=== PATIENT | female | born 1940 | race Caucasian/White ===

== ENCOUNTER 2016-11-02 16:17 | Inpatient (IN) | payer MEDICARE ==
[~2016-11-02] VITALS: Ht 165.1 cm; Wt 90.5 kg
[2016-11-02] MEDS ORDERED: HYDR12.55 PO (16:43)
[2016-11-02] MEDS ORDERED: METO12TA PO (16:43)
[2016-11-02] MEDS ORDERED: EQ O20TA4 (16:43)
[2016-11-02] MEDS ORDERED: ESCI20TA (16:43)
[2016-11-02] MEDS ORDERED: AMOX875T2 PO (16:43)
[2016-11-02] MEDS ORDERED: NS 500 ML IV ONE (18:45)
[2016-11-02] MEDS ORDERED: TRIMETHOBENZAMIDE HCL INJ 200 MG/2 ML VIAL (J3250) IM ONE (18:45)
[2016-11-02 19:17] LABS: BASO % 0.3 % (0.0-1.0); EOS # 0.1 K/mm3 (0.0-0.50); EOS % 0.9 % (0.0-3.0); LARGE UNSTAINED CELL # 0.1 K/mm3 (0.0-0.4); LARGE UNSTAINED CELL % 0.6 % (0.0-4.0); LYMPH # 1.1 K/mm3 (1.5-4.5); LYMPH % 7.8 % (24.0-44.0); MEAN CORPUSCULAR HEMOGLOBIN 27.8 pg (27.0-33.0); MEAN CORPUSCULAR HGB CONC 32.3 g/dl (32.0-36.5); MEAN CORPUSCULAR VOLUME 86.1 fl (80.0-96.0); MONO # 0.5 K/mm3 (0.0-0.8); MONO % 3.5 % (0.0-5.0); NEUTROPHILS # 11.2 K/mm3 (1.8-7.7); NEUTROPHILS % 86.9 % (36.0-66.0); PLATELET COUNT, AUTOMATED 396 k/mm3 (150-450); WHITE BLOOD COUNT 12.9 K/mm3 (4.0-10.0)
[2016-11-02 19:43] LABS: ALBUMIN 4.4 GM/DL (3.2-5.2); ALBUMIN/GLOBULIN RATIO 1.19 (1.00-1.93); BILIRUBIN,DIRECT 0.2 MG/DL (0.0-0.2); BILIRUBIN,TOTAL 0.9 MG/DL (0.2-1.0); CALCIUM LEVEL 9.2 MG/DL (8.8-10.2); CREATININE FOR GFR 1.34 MG/DL (0.55-1.02); TOTAL PROTEIN 8.1 GM/DL (6.4-8.2)
--- NOTE | 2016-11-02 20:20 | REPUSA ---
Clinical history: Right upper quadrant pain. Findings: The pancreas is limited in visualization secondary to overlying bowel gas, but appears meghan sly unremarkable. The liver demonstrates increased echotexture and echogenicity, with no mass lesion s. The gallbladder is unremarkable. The common bile duct measures 4 mm and is within normal limits. T he right kidney measures 9.2 x 4.7 x 4.3 cm. A simple cyst in the upper right kidney measures 2.3 x 1 .8 x 1.5 cm. There is no ascites. Impression: 1. Fatty infiltration of the liver. 2. Simple right renal cyst.
[2016-11-02] MEDS ORDERED: ISOVUE-370 76% 100ML VIAL (Q9967) As Ordered ONE (21:10)
[2016-11-02] MEDS: ONDANSETRON 4MG/2ML VIAL (J2405) IV PRN (21:24)
[2016-11-02] MEDS ORDERED: NS 1,000 ML IV SCH (21:45)
--- NOTE | 2016-11-02 22:00 | REPUSA ---
CT of the abdomen and pelvis with contrast Clinical statement: Pain. Possible pancreatitis. Technique: Multiple axial CT images were obtained from the base of the lungs through the floor of the pelvis utilizing 5 mm axial slices after administration of nonionic intravenous contrast. Coronal an d sagittal reconstructions were also obtained. No comparison is available. Correlation is made with ultrasound of 11/02/2016. Findings: Chest: The visualized lung bases are clear. Abdomen: The liver, spleen, pancreas, kidneys, gallbladder, and adrenal glands are unremarkable. Bila teral simple renal cysts are appreciated. The aorta is within normal limits. There is no evidence of abdominal lymphadenopathy or ascites. Pelvis: The bowel is unremarkable, with no obstructive or inflammatory changes. The appendix is bette l. The urinary bladder is within normal limits. The other pelvic structures appear grossly intact. Th ere is no evidence of pelvic lymphadenopathy or ascites. Bones: There are no suspicious osseous abnormalities seen. Moderate degenerative disc disease is note d at L2/L3 and L3/L4. There is a lumbarization of the S1 vertebral body. Impression: 1. No acute findings to explain the patient's pain. 2. No evidence of pancreatitis. 3. Bilateral simple renal cysts. 4. No obstructive or inflammatory bowel changes. 5. Mild spondylosis of the lumbar spine.
[2016-11-02] MEDS ORDERED: PANTOPRAZOLE 40MG INJ (PROTONIX) (C9113) IV ONE (22:45)
[2016-11-02] MEDS ORDERED: GI COCKTAIL 50ML BTL(HYOSCYAMINE/MAALOX/LIDOCAINE VISCOUS)(1:3:1) PO ONE (22:45)
[2016-11-03] MEDS ORDERED: NS 1,000 ML IV SCH (01:30)
[2016-11-03] MEDS ORDERED: OMEP20CA3 PO (02:31)
[2016-11-03] MEDS ORDERED: ESCI20TA PO (02:31)
[2016-11-03 03:00] VITALS: BP 152/80
[2016-11-03] MEDS ORDERED: METAL LOCK LOOP XX ONE (03:16)
[2016-11-03] MEDS: METOCLOPRAMIDE INJ 10MG/2ML VIAL (J2765) IV SCH ×2 (03:25→12:47)
[2016-11-03 06:00] VITALS: BP 185/90
--- NOTE | 2016-11-03 07:06 | HPE ---
DATE OF ADMISSION: 11/03/2016 PRIMARY CARE PROVIDER: Dr. Martinez CHIEF COMPLAINT: Severe nausea and vomiting, intractable for one day. PAST MEDICAL HISTORY: 1. Hyperlipidemia. 2. Anxiety. 3. Depression. 4. Gastroesophageal reflux disease. 5. Osteoporosis. 6. Coronary artery disease with history of myocardial infarction in 2010. 7. Vitamin D deficiency. 8. History of alcohol abuse. 9. Obesity. 10. Hypertension. 11. Obstructive sleep apnea, on CPAP. 12. Chronic kidney disease Stage III. HISTORY OF PRESENT ILLNESS: This is a 76-year-old female who has been battling a cough, cold and upper respiratory symptoms for about two weeks. She was getting better and seemed to be feeling more herself; however, last night she had several diarrheal episodes which she says is not uncommon so she did not give importance to it. This morning she woke up with severe nausea and had threw up twice at home. She tried to take some liquids, but everything is coming up. Then she would also have bouts of coughing associated with vomiting. She continued to feel very sick, persistently nauseous and feeling lightheaded, so came to the emergency room. In the emergency department (ED), she continued to feel nauseous and complaining of some abdominal pain. She had a CT of abdomen and pelvis done and an ultrasound of the abdomen done. Ultrasound of the abdomen was negative for any gallbladder issues. It did show some fatty infiltration of the liver and a renal cyst on the right. Abdominal and pelvis CT was then done which did not show any pancreatitis. There were bilateral simple renal cysts. There was no obstructive or inflammatory bowel changes. There was mild spondylosis of the lumbar spine. Appendix was normal. The patient's lab work was significant for a WBC of 12.9 and a lipase of 462. The patient was given antiemetic, proton pump inhibitor (PPI), IV fluids, gastrointestinal (GI) cocktail in the ED, however, continued to have persistent symptoms, so the hospitalist service was consulted for admission for intractable nausea and vomiting, most probably related to gastritis, duodenitis or acute stomach viral episode. PAST SURGICAL HISTORY: Hysterectomy in 1999. ALLERGIES: No known allergies. FAMILY HISTORY: Nothing significant. HOME MEDICATIONS: - citalopram 20 mg daily - hydrochlorothiazide 12.5 mg daily - metoprolol 25 mg daily - omeprazole 20 mg daily - nitroglycerin 0.4 mg sublingual as needed - Claritin 10 mg one tablet once a day as needed - naproxen 500 mg one tablet as needed as needed REVIEW OF SYSTEMS: All ten point review of systems are negative except those mentioned in history of present illness. PHYSICAL EXAMINATION: VITAL SIGNS: Temperature 98.5, pulse 86, respiratory rate 18, blood pressure 162/89 and pulse oximetry 95% in room air. GENERAL: Patient awake, alert and oriented times three, laying in bed in no acute distress. HEENT: Normocephalic, atraumatic. Moist mucous membranes. Anicteric eyes. CHEST: Clear to auscultation. CARDIOVASCULAR: S1, S2, regular. ABDOMEN: Obese. Soft. Mildly tender in the epigastrium and the right upper quadrant and right iliac fossa region. Bowel sounds are normal. EXTREMITIES: No edema. LABORATORY DATA: WBC 12.9, hemoglobin 13.5, and platelets 396. Sodium 137, potassium 4, chloride 102, bicarbonate 25, BUN 18, creatinine 1.34, glucose 116. Liver function tests are normal. C-reactive protein 2.14. Lipase 462. Amylase 81. ASSESSMENT AND PLAN: This is a 76-year-old female admitted for intractable nausea and vomiting. 1. Nausea and vomiting. Most probably due to either acute gastritis, duodenitis or stomach viral infection. Will keep the patient on clear liquids as tolerated and advance diet as tolerated. IV fluids. Will continue with Reglan and pantoprazole. 2. Hypertension. Will continue with metoprolol; however, will hold hydrochlorothiazide at present. 3. Anxiety and depression. Will hold Lexapro. 4. Gastroesophageal reflux disease. Will continue with pantoprazole. 5. Deep vein thrombosis (DVT) prophylaxis has been ordered. 6. Gastrointestinal (GI) prophylaxis has been ordered. 7. Obstructive sleep apnea and obesity. Will continue with CPAP.
[2016-11-03 07:07] LABS: BASO % 0.5 % (0.0-1.0); EOS % 0.4 % (0.0-3.0); LARGE UNSTAINED CELL # 0.2 K/mm3 (0.0-0.4); LARGE UNSTAINED CELL % 1.5 % (0.0-4.0); LYMPH # 1.2 K/mm3 (1.5-4.5); LYMPH % 10.1 % (24.0-44.0); MEAN CORPUSCULAR HEMOGLOBIN 27.8 pg (27.0-33.0); MEAN CORPUSCULAR HGB CONC 32.7 g/dl (32.0-36.5); MONO # 0.6 K/mm3 (0.0-0.8); NEUTROPHILS # 8.4 K/mm3 (1.8-7.7); NEUTROPHILS % 81.6 % (36.0-66.0); PLATELET COUNT, AUTOMATED 330 k/mm3 (150-450); RED CELL DISTRIBUTION WIDTH 12.9 % (11.5-14.5); WHITE BLOOD COUNT 10.3 K/mm3 (4.0-10.0)
[2016-11-03 07:24] LABS: CALCIUM LEVEL 8.8 MG/DL (8.8-10.2); CREATININE FOR GFR 1.27 MG/DL (0.55-1.02); GLOMERULAR FILTRATION RATE 43.7 (>39); POTASSIUM SERUM 3.6 MEQ/L (3.5-5.1)
[2016-11-03] MEDS ORDERED: amLODIPine 5 MG TAB PO ONE (08:00)
[2016-11-03] MEDS: ENOXAPARIN 40 MG/0.4 ML SYRINGE (J1650) SC SCH (08:14)
[2016-11-03] MEDS: METOPROLOL TART 12.5 MG PER 1/2 TAB PO SCH ×2 (08:14→20:09)
[2016-11-03] MEDS: ONDANSETRON 4MG/2ML VIAL (J2405) IV PRN ×2 (08:15→18:24)
[2016-11-03] MEDS: PANTOPRAZOLE 40MG INJ (PROTONIX) (C9113) IV SCH ×2 (08:15→20:07)
[2016-11-03] MEDS: MORPHINE 2 MG/ML 1ML SYRINGE IV PRN ×4 (09:19→22:05)
--- NOTE | 2016-11-03 09:36 | REP ---
CHEST PA AND LATERAL: 11/02/2016 CLINICAL HISTORY: Abdominal pain. COMPARISON: Portable chest 01/31/2011. FINDINGS: Lungs are adequately inflated. There is minor basilar fibrotic change without pleural effusion, lateral pleural thickening apical scar or pneumothorax. There is no parenchymal lung mass or nodule. The heart, mediastinal and hilar contours are normal. Airway is intact. The aorta is minimally tortuous but without aneurysm. There is no mediastinal or hilar mass. Bony thorax shows no focal lesion or compression deformity with marginal osteophytes at multiple levels. The bones are demineralized. No free air. IMPRESSION: 1. Some minor basilar fibrotic change without cardiomegaly, edema, effusion, atelectasis or mass. No free air under the diaphragm. Signed by Gabo Macdonald MD 11/03/2016 05:09 P
[2016-11-03] MEDS: NS 1,000 ML IV SCH ×3 (13:20→21:45)
[2016-11-03 14:00] VITALS: BP 152/88
--- NOTE | 2016-11-03 17:52 | ECGEPIP ---
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
[2016-11-03 22:00] VITALS: BP 138/76
[2016-11-04] MEDS: MORPHINE 2 MG/ML 1ML SYRINGE IV PRN ×4 (02:22→20:48)
[2016-11-04] MEDS: ONDANSETRON 4MG/2ML VIAL (J2405) IV PRN ×4 (02:22→17:33)
[2016-11-04] MEDS: NS 1,000 ML IV SCH ×5 (02:45→22:45)
[2016-11-04 06:00] VITALS: BP 130/82
[2016-11-04 07:01] LABS: BASO % 0.7 % (0.0-1.0); EOS # 0.1 K/mm3 (0.0-0.50); EOS % 1.7 % (0.0-3.0); LARGE UNSTAINED CELL # 0.1 K/mm3 (0.0-0.4); LARGE UNSTAINED CELL % 1.7 % (0.0-4.0); LYMPH # 1.2 K/mm3 (1.5-4.5); LYMPH % 16.8 % (24.0-44.0); MEAN CORPUSCULAR HEMOGLOBIN 27.8 pg (27.0-33.0); MEAN CORPUSCULAR HGB CONC 32.2 g/dl (32.0-36.5); MEAN CORPUSCULAR VOLUME 86.2 fl (80.0-96.0); MONO # 0.4 K/mm3 (0.0-0.8); NEUTROPHILS # 4.5 K/mm3 (1.8-7.7); PLATELET COUNT, AUTOMATED 288 k/mm3 (150-450); RED CELL DISTRIBUTION WIDTH 12.8 % (11.5-14.5); WHITE BLOOD COUNT 6.3 K/mm3 (4.0-10.0)
[2016-11-04 07:19] LABS: CREATININE FOR GFR 1.01 MG/DL (0.55-1.02); GLOMERULAR FILTRATION RATE 56.9 (>39); POTASSIUM SERUM 3.6 MEQ/L (3.5-5.1)
[2016-11-04] MEDS: METOPROLOL TART 12.5 MG PER 1/2 TAB PO SCH ×2 (08:23→20:47)
[2016-11-04] MEDS: amLODIPine 5 MG TAB PO SCH (08:23)
[2016-11-04] MEDS: ENOXAPARIN 40 MG/0.4 ML SYRINGE (J1650) SC SCH (08:24)
[2016-11-04] MEDS: PANTOPRAZOLE 40MG INJ (PROTONIX) (C9113) IV SCH ×2 (08:24→20:47)
[2016-11-04 14:00] VITALS: BP 154/72
[2016-11-04] MEDS: ESCITALOPRAM OXALATE 10 MG TAB (LEXAPRO) PO SCH (17:34)
--- NOTE | 2016-11-04 17:57 | IPN ---
DATE: 11/04/2016 SUBJECTIVE: Patient is seen and examined in the room today. Patient stated her right upper quadrant abdominal pain is improving with current pain medication and supportive care. Now she has fear of oral intake, she is afraid to try any oral intake at this moment. Otherwise, no overnight events reported. OBJECTIVE: VITAL SIGNS: Temperature 98.7, pulse 75, respiration rate 13, blood pressure 130/82, pulse oximetry (cut off). GENERAL: No sign of acute distress. Alert and oriented times three. HEENT: Normocephalic, atraumatic. Extraocular motors grossly intact. CARDIOVASCULAR: Positive S1, S2, regular rate. LUNGS: Clear to auscultation bilaterally. ABDOMEN: Still tenderness to palpation at the right upper quadrant. Otherwise, bowel sounds are present. Abdomen is soft. EXTREMITIES: No edema. No sign of cyanosis. LABORATORY DATA: WBC 6.3, hemoglobin 10.3, hematocrit 31.8, platelet count 288. Sodium 143, potassium 3.6, chloride 111, carbon dioxide 22, BUN 13, creatinine 1.01, GFR 56.9, calcium 7, magnesium 2, lipase 497. ASSESSMENT AND PLAN: 1. Pancreatitis. Patient was on pain medication and nothing by mouth on IV fluid since admission. Abdominal pain is improving. Patient's lipase decreased from 600 to 497. After discussion with patient, patient will start trial of full liquid diet during lunchtime and will advance as tolerated. If patient still has recurrence of the abdominal pain will resume nothing by mouth. Patient denies any recent medication changes. Patient does not have elevated triglycerides. 2. Hypertension. Continue metoprolol. Hydrochlorothiazide is on hold due to suspicion hydrochlorothiazide caused adverse effect causing patient's current signs and symptoms. Currently patient is on Norvasc 5 mg by mouth daily and metoprolol tartrate 12.5 mg by mouth twice a day. 3. Anxiety/depression. Patient is on escitalopram at home. Currently is on hold due to trying to minimize oral intake. Will resume her medication today. 4. Gastroesophageal reflux disease. Patient is on IV Protonix. 5. History of alcohol abuse. 6. Vitamin D deficiency. 7. Coronary artery disease. 8. Obesity. 9. Obstructive sleep apnea (JEFF). On continuous positive airway pressure (CPAP). 10. Acute on chronic kidney injury secondary to poor oral intake. With IV support, patient's creatinine improved from 1.34 to 1.01. Continue to monitor. 11. Deep venous thrombosis (DVT) prophylaxis. Patient is on Lovenox.
[2016-11-04 22:00] VITALS: BP 160/55
[2016-11-05] MEDS: NS 1,000 ML IV SCH ×3 (03:45→15:40)
[2016-11-05 06:00] VITALS: BP 155/80
[2016-11-05] MEDS: ONDANSETRON 4MG/2ML VIAL (J2405) IV PRN ×4 (06:09→22:48)
[2016-11-05 07:20] LABS: BASO % 0.4 % (0.0-1.0); EOS # 0.1 K/mm3 (0.0-0.50); EOS % 1.8 % (0.0-3.0); LARGE UNSTAINED CELL # 0.1 K/mm3 (0.0-0.4); LARGE UNSTAINED CELL % 1.4 % (0.0-4.0); LYMPH % 14.5 % (24.0-44.0); MEAN CORPUSCULAR HEMOGLOBIN 27.6 pg (27.0-33.0); MEAN CORPUSCULAR HGB CONC 32.2 g/dl (32.0-36.5); MEAN CORPUSCULAR VOLUME 85.8 fl (80.0-96.0); MONO # 0.4 K/mm3 (0.0-0.8); MONO % 5.9 % (0.0-5.0); NEUTROPHILS # 4.7 K/mm3 (1.8-7.7); PLATELET COUNT, AUTOMATED 320 k/mm3 (150-450); WHITE BLOOD COUNT 6.2 K/mm3 (4.0-10.0)
[2016-11-05 07:55] LABS: CALCIUM LEVEL 7.2 MG/DL (8.8-10.2); CREATININE FOR GFR 0.97 MG/DL (0.55-1.02); GLOMERULAR FILTRATION RATE 59.6 (>39); MAGNESIUM LEVEL 1.9 MG/DL (1.8-2.4); POTASSIUM SERUM 3.6 MEQ/L (3.5-5.1)
[2016-11-05] MEDS: PANTOPRAZOLE 40MG INJ (PROTONIX) (C9113) IV SCH ×2 (10:08→21:04)
[2016-11-05] MEDS: PREVNAR 13 VACCINE SYRINGE (CPT CODE:90670) IM ONE ×2 (10:09→14:18)
[2016-11-05] MEDS: amLODIPine 5 MG TAB PO SCH (10:10)
[2016-11-05] MEDS: METOPROLOL TART 12.5 MG PER 1/2 TAB PO SCH ×2 (10:10→21:08)
[2016-11-05] MEDS: ESCITALOPRAM OXALATE 10 MG TAB (LEXAPRO) PO SCH (10:10)
[2016-11-05] MEDS: ENOXAPARIN 40 MG/0.4 ML SYRINGE (J1650) SC SCH (10:11)
[2016-11-05 14:00] VITALS: BP 158/80
--- NOTE | 2016-11-05 18:16 | IPN ---
DATE: 11/05/2016 SUBJECTIVE: Patient is seen and examined in the room today. Patient stated she has been on the liquid diet, however this morning after breakfast she started having recurrence of nausea and vomiting and patient started to have worsening fear of food, but nausea and vomiting is gradually controlled with Zofran. Patient is not sure if she can advance the diet due to fear. OBJECTIVE: VITAL SIGNS: Temperature 97.9, pulse 73, respirations 18, blood pressure 155/80, pulse oximetry 93% in room air. GENERAL: No sign of acute distress, alert and oriented times three. HEENT: Normocephalic, atraumatic. Extraocular motors grossly intact. CARDIOVASCULAR: Positive S1, S2, regular rate. LUNGS: Clear to auscultation bilaterally. ABDOMEN: Soft, nontender, nondistended. Bowel sounds present. No rebound. No guarding. EXTREMITIES: No edema. No sign of cyanosis. LABORATORY DATA: WBC 6.2, hemoglobin 10.8, hematocrit 33.6, platelet count 320. Sodium 141, potassium 3.6, chloride 110, carbon dioxide 21, BUN 9, creatinine 0.97, GFR is 59.6, fasting glucose 101, calcium 7.2, magnesium 1.9, C-reactive protein 1.27. ASSESSMENT AND PLAN: 1. Pancreatitis. Patient is on aggressive IV fluids since admission and patient also has as needed pain medication. Patient was started on clear liquid diet, however this morning patient started to have recurrence of nausea and vomiting and patient started to have fear about advancing oral intake. I discussed with the patient, patient should advance the diet as tolerated. If patient should have nausea and vomiting, symptoms can be controlled. Right now, after a long discussion, patient agreed to advance to soft diet for lunch time and possibly will advance to solid for dinner if tolerated. I will also start to decrease IV fluids. Will follow with repeat lipase level. Will anticipate patient may be discharged tomorrow. 2. Hypertension. Continue metoprolol. Hydrochlorothiazide is on hold due to possible cause for patient's current signs and symptoms. Patient is also on Norvasc by mouth daily. Metoprolol is 12.5 mg by mouth twice a day. 3. Anxiety/depression. Patient is on escitalopram. 4. Gastroesophageal reflux disease. On Protonix. 5. History of alcohol abuse. Patient has a significant alcohol history in the past and patient has attended Alcoholics Anonymous (AA) meetings, but patient stopped drinking many years ago. 6. History of vitamin D deficiency. 7. History of coronary artery disease. 8. Obesity. 9. Obstructive sleep apnea (JEFF) on continuous positive airway pressure (CPAP). 10. Acute on chronic kidney injury secondary to poor oral intake. Patient is on aggressive IV fluids since admission. Patient's renal function has been improving. On the day of admission patient had a GFR of 41, current GFR is approximately 60. Will slow down the IV fluids. 11. Deep venous thrombosis (DVT) prophylaxis on Lovenox. DISPOSITION: Currently patient is in the process of advancing oral intake. We anticipate that patient may be discharged tomorrow.
[2016-11-05 22:00] VITALS: BP 152/80
[2016-11-06] MEDS: ONDANSETRON 4MG/2ML VIAL (J2405) IV PRN ×2 (03:08→08:24)
[2016-11-06 06:00] VITALS: BP 165/85
[2016-11-06 07:18] LABS: BASO % 0.4 % (0.0-1.0); EOS # 0.1 K/mm3 (0.0-0.50); EOS % 1.5 % (0.0-3.0); LARGE UNSTAINED CELL # 0.1 K/mm3 (0.0-0.4); LARGE UNSTAINED CELL % 1.3 % (0.0-4.0); LYMPH # 1.1 K/mm3 (1.5-4.5); LYMPH % 13.6 % (24.0-44.0); MEAN CORPUSCULAR HEMOGLOBIN 27.9 pg (27.0-33.0); MEAN CORPUSCULAR HGB CONC 33.4 g/dl (32.0-36.5); MEAN CORPUSCULAR VOLUME 83.7 fl (80.0-96.0); MONO # 0.4 K/mm3 (0.0-0.8); MONO % 4.9 % (0.0-5.0); NEUTROPHILS % 78.3 % (36.0-66.0); PLATELET COUNT, AUTOMATED 348 k/mm3 (150-450); RED CELL DISTRIBUTION WIDTH 12.9 % (11.5-14.5); WHITE BLOOD COUNT 7.6 K/mm3 (4.0-10.0)
[2016-11-06 07:30] LABS: CALCIUM LEVEL 7.9 MG/DL (8.8-10.2); GLOMERULAR FILTRATION RATE 57.5 (>39); MAGNESIUM LEVEL 1.9 MG/DL (1.8-2.4); POTASSIUM SERUM 3.6 MEQ/L (3.5-5.1)
[2016-11-06] MEDS: PANTOPRAZOLE 40MG INJ (PROTONIX) (C9113) IV SCH (08:05)
[2016-11-06] MEDS: ENOXAPARIN 40 MG/0.4 ML SYRINGE (J1650) SC SCH (08:09)
[2016-11-06 08:10] VITALS: BP 165/85
[2016-11-06] MEDS: METOPROLOL TART 12.5 MG PER 1/2 TAB PO SCH (08:10)
[2016-11-06] MEDS: amLODIPine 5 MG TAB PO SCH (08:10)
[2016-11-06] MEDS: ESCITALOPRAM OXALATE 10 MG TAB (LEXAPRO) PO SCH (08:11)
[2016-11-06 08:30] VITALS: BP 165/70
[2016-11-06] MEDS ORDERED: ZOFR20TA PO (12:37)
[2016-11-06] MEDS ORDERED: METO25TAB PO (12:37)
[2016-11-06] MEDS ORDERED: AMLO5TAB2 PO (12:37)
--- NOTE | 2016-11-06 18:18 | DSES ---
DATE OF ADMISSION: 11/03/2016 DATE OF DISCHARGE: 11/06/2016 PRIMARY CARE PROVIDER: Dr. Martinez CONSULTANTS: None. PROCEDURES: None. COMPLICATIONS: None. ADMISSION/DISCHARGE DIAGNOSES: 1. Acute pancreatitis. 2. Hypertension. 3. Anxiety/depression. 4. Gastroesophageal reflux disease. 5. History of alcohol abuse. 6. History of vitamin D deficiency. 7. History of coronary artery disease. 8. Obesity. 9. Obstructive sleep apnea (JEFF), on continuous positive airway pressure (CPAP). 10. Acute on chronic kidney injury secondary to poor oral intake. HOSPITAL COURSE: The patient is a 76-year-old male, presented to [facility] on 11/03/2016 for severe nausea, vomiting and abdominal discomfort. During the admission process, the patient was found to have an elevated lipase. A gastrointestinal (GI) panel was obtained and it was negative, and the patient was started on a course of intravenous (IV) fluids and the patient placed on nothing by mouth and pain control. The patient's nausea and vomiting continued to improve with medical management. The patient is still using Zofran intermittently to control the symptoms. When the patient's GI symptoms continued gradually to resolve, the patient was started on a clear liquid diet. However, due to the and there was recurrence of the abdominal pain, the patient's oral intake progression has been relatively slow and the patient stayed on a clear liquid diet for at least 1-2 days. Finally, on 11/05/2016, the patient was able to advance to a soft diet and she had an attempt of the solid diet. During those two attempts, the patient did not have any nausea, vomiting or abdominal pain. However, due to mild worsening of the lipase, the patient was recommended to slow the oral intake progression. During the hospitalization stay, the patient noted to have mood swings. Occasionally the patient would become emotional and tearful, but patient's mentation was able to return to her baseline within a few hours. On 11/06/2016, the patient was determined to be medically stable for discharge with recommendation to slow down with the oral advancement, continue to stay with a low-salt, low-fat diet, and the patient should followup with her primary care provider, Dr. Martinez, within 1 week. The patient should discuss her anxiety/depression medication adjustments. OBJECTIVE: VITAL SIGNS: Temperature is 98.9, pulse is 61, respiratory rate 18, blood pressure is 165/70, pulse oximetry is 95% in room air. LABORATORY DATA: WBC 7.6, hemoglobin 11.3, hematocrit 34, platelet count is 348. Sodium is 142, potassium 3.6, chloride is 108, carbon dioxide 22, BUN 9, creatinine 1, GFR is 57.5, fasting glucose is 101, calcium is 7.9, magnesium 1.9, lipase is 590. Microbiology: GI panel is negative. Influenza is negative. IMAGING STUDIES: CT of the chest shows small or minor bibasilar fibrotic change without cardiomegaly, edema, effusion, atelectasis or mass. No free air under the diaphragm. Abdominal ultrasound showed fatty infiltration of the liver. Simple right renal cyst. CT of the abdomen and pelvis showed no acute findings. No evidence of pancreatitis. Bilateral simple renal cysts. No obstructive or inflammatory bowel changes. Mild spondylosis of the lumbar spine. DISCHARGE INSTRUCTIONS: Discontinue lines. Discharge home. Activity as tolerated. Low salt, low fat diet as tolerated. Actually, the patient should start with a soft diet and advance diet slowly as tolerated. The patient should followup with her primary care provider within 1 week. The patient should discuss regarding her anxiety and depression medication adjustments. DISCHARGE MEDICATIONS: - amlodipine 5 mg by mouth daily - metoprolol tartrate 25 mg by mouth twice a day - Zofran 4 mg by mouth every 6 hours as needed - escitalopram 20 mg by mouth daily - omeprazole 20 mg by mouth daily DISCHARGE TIME: Greater than 30 minutes. DISCHARGE CONDITION: Stable. Copy To: Dr. Martinez
== END 2016-11-06 13:50 | disposition home or self-care (01) | DRG 439 ==
LOC: M ED 17:34 → OBSVTOIN 11-03 01:28 → M ED INP 11-03 01:28 → M MS5PR 11-03 03:00
PROVIDERS: ADMIT Internal Medicine Nephrology; ATTEND Internal Medicine
DX: K85.90 Acute pancreatitis without necrosis or infection, unspecified (principal); N17.9 Acute kidney failure, unspecified; E78.5 Hyperlipidemia, unspecified; F41.9 Anxiety disorder, unspecified; F32.9 Major depressive disorder, single episode, unspecified; K21.9 Gastro-esophageal reflux disease without esophagitis; M81.0 Age-related osteoporosis without current pathological fracture; I25.10 Atherosclerotic heart disease of native coronary artery without angina pectoris; I25.2 Old myocardial infarction; E55.9 Vitamin D deficiency, unspecified; E66.9 Obesity, unspecified; I12.9 Hypertensive chronic kidney disease with stage 1 through stage 4 chronic kidney disease, or unspecified chronic kidney disease; G47.33 Obstructive sleep apnea (adult) (pediatric); N18.3 Chronic kidney disease, stage 3 (moderate); Z79.899 Other long term (current) drug therapy; Z90.710 Acquired absence of both cervix and uterus; Z68.32 Body mass index [BMI] 32.0-32.9, adult

== ENCOUNTER → 2016-12-08 | Outpatient (CLI) | payer MEDICARE ==
[~2016-12-08] MED LIST: AMLO5TAB2 PO; AMOX875T2 PO; EQ O20TA4; ESCI20TA; ESCI20TA PO; HYDR12.55 PO; METO12TA PO; METO25TAB PO; OMEP20CA3 PO; ZOFR20TA PO
--- NOTE | 2016-12-08 14:52 | REPMRS ---
Patient History The patient states she has not had a clinical breast exam in over a year. Patient is postmenopausal. Family history of breast cancer in mother at age 50 or over and prostate cancer in paternal uncle at age 89. Digital Woman Screen Mammo: December 08, 2016 - Exam #: [id number] Bilateral CC and MLO view(s) were taken. Technologist: Darline Reid Technologist Prior study comparison: July 09, 2015, digital woman screen mammo performed at [facility] to [facility]. March 15, 2013, digital woman screen mammo performed at [facility] to [facility]. October 01, 2010, bilateral bilat screen digital mammo performed at [facility] to [facility]. FINDINGS: There are scattered fibroglandular densities. There has been no change in the appearance of the mammogram from the prior studies. There is a mild amount of scattered fibroglandular density which is fairly symmetric. There is no interval development of dominant mass, architectural distortion, or clustered microcalcification suggestive of malignancy. ASSESSMENT: BI-RADS/ACR category 1 mammogram. Negative. Recommendation Routine screening mammogram in 1 year (for women over age 40). This mammogram was interpreted with the aid of an FDA-approved computer-aided dectection system. Electronically Signed By: Fei Arriola MD 12/08/16 [id number]
--- NOTE | 2016-12-11 08:09 | DEXA ---
AP SPINE L1 - L4 1.097 -0.8 0.4 LT FEMUR TOTAL 0.976 -0.3 1.1 RT FEMUR TOTAL 1.011 0.0 1.4 TOTAL BODY TOTAL OTHER DUAL FEMUR FRAX* ASSESSMENT Risk factors: History of adult fracture. 10 year probability of fracture Major osteoporotic fracture 15.7 % Hip fracture 2.6 % COMMENTS: Normal bone densitometry of the spine. Normal bone densitometry of the right hip. There is bone density of the left hip. The density of the spine has increased 4.4% since the initial exam on 1998. The spine density has increased 11.0% since the most recent exam on 03/15/2013. The density of the left hip has increased 1.6% since the initial exam on 1998. The density of the left hip has increased 6.9% since the most recent exam on . The density of the right hip has increased 1.5% since the initial exam on 2008. The density of the right hip has increased 1.4% since the most recent exam on . FOLLOW-UP: Recommendation for the next bone density exam: 2 years. JOSUED
== END ==
LOC: M WHC 13:42
PROVIDERS: ATTEND Family Medicine
DX: Z12.31 Encounter for screening mammogram for malignant neoplasm of breast (principal); M81.0 Age-related osteoporosis without current pathological fracture; Z78.0 Asymptomatic menopausal state; Z80.3 Family history of malignant neoplasm of breast
CPT/HCPCS: 77080; G0202; G0463

== ENCOUNTER 2017-01-28 11:59 | Emergency (ER) | payer MEDICARE ==
[~2017-01-28] VITALS: Ht 162.6 cm; Wt 80.6 kg
[~2017-01-28 11:59] MED LIST changes: -METO12TA PO; +METO1TAB87 PO; +METO25TA4 PO; -METO25TAB PO
[2017-01-28] MEDS ORDERED: NS 1,000 ML IV ONE (14:15)
[2017-01-28 15:11] LABS: BASO % 0.4 % (0.0-1.0); EOS # 0.1 K/mm3 (0.0-0.50); LARGE UNSTAINED CELL # 0.1 K/mm3 (0.0-0.4); LARGE UNSTAINED CELL % 1.7 % (0.0-4.0); LYMPH # 1.6 K/mm3 (1.5-4.5); LYMPH % 19.4 % (24.0-44.0); MEAN CORPUSCULAR HGB CONC 32.6 g/dl (32.0-36.5); MEAN CORPUSCULAR VOLUME 85.7 fl (80.0-96.0); MONO # 0.5 K/mm3 (0.0-0.8); NEUTROPHILS # 5.7 K/mm3 (1.8-7.7); NEUTROPHILS % 71.4 % (36.0-66.0); PLATELET COUNT, AUTOMATED 267 k/mm3 (150-450); RED CELL DISTRIBUTION WIDTH 13.6 % (11.5-14.5)
[2017-01-28 16:19] LABS: ALBUMIN 3.8 GM/DL (3.2-5.2); ALBUMIN/GLOBULIN RATIO 1.23 (1.00-1.93); BILIRUBIN,DIRECT 0.1 MG/DL (0.0-0.2); BILIRUBIN,TOTAL 0.6 MG/DL (0.2-1.0); CALCIUM LEVEL 8.7 MG/DL (8.8-10.2); CREATININE FOR GFR 1.02 MG/DL (0.55-1.02); GLOMERULAR FILTRATION RATE 56.2 (>39); MAGNESIUM LEVEL 1.9 MG/DL (1.8-2.4); POTASSIUM SERUM 3.6 MEQ/L (3.5-5.1); TOTAL PROTEIN 6.9 GM/DL (6.4-8.2)
[2017-01-28] MEDS ORDERED: ISOVUE-370 76% 100ML VIAL (Q9967) As Ordered ONE (16:25)
--- NOTE | 2017-01-28 17:05 | REP ---
Clinical: Abdominal pain with diarrhea. Technique: Axial contrast enhanced images from the lung bases to the pubic symphysis using 100 ml Isovue 370 intravenous contrast material with coronal and sagittal re-formations. Findings: Lung bases demonstrate minimal left basilar scarring. Visualized heart and pericardium are normal. Liver, spleen, pancreas, gallbladder, bilateral adrenal glands are normal. Kidneys demonstrate few bilateral simple cysts measuring up to 2.2 cm. The enteric system demonstrates fluid-filled small and large bowel which may reflect mild enterocolitis. There is no bowel obstruction. No free air. No free fluid. No adenopathy. Pelvis demonstrates normal bladder and evidence of prior hysterectomy. Vasculature is normal. Musculoskeletal structures demonstrate age-related degenerative changes. Impression: 1. Fluid-filled small large bowel may reflect a mild enterocolitis. 2. Solitary bilateral renal cysts measuring up to 2.2 cm. Signed by Shiraz Dominguez MD 01/28/2017 04:55 P
[2017-01-28 17:36] VITALS: BP 131/64
[2017-01-28] MEDS ORDERED: PRED20TA PO (17:37)
[2017-02-25] MEDS ORDERED: CYMB60CA3 PO (13:12)
[2017-02-25] MEDS ORDERED: METO25TA4 PO (13:12)
[2017-02-25] MEDS ORDERED: ROZE8TAB16 PO (13:12)
[2017-02-25] MEDS ORDERED: VALA1TAB2 PO (13:12)
== END 2017-01-28 17:48 | disposition home or self-care (01) ==
LOC: M ED 11:59
DX: K52.9 Noninfective gastroenteritis and colitis, unspecified (principal); I10 Essential (primary) hypertension; K21.9 Gastro-esophageal reflux disease without esophagitis; F99 Mental disorder, not otherwise specified; Z87.19 Personal history of other diseases of the digestive system; Z79.899 Other long term (current) drug therapy; Z88.8 Allergy status to other drugs, medicaments and biological substances
CPT/HCPCS: 36415; 74177; 80048; 80076; 81001; 82150; 83690; 83735; 85025; 99283; Q9967

== ENCOUNTER 2017-03-03 08:17 | Outpatient (CLI) | payer MEDICARE ==
[~2017-03-03] VITALS: Ht 161.3 cm; Wt 77.6 kg
[~2017-03-03 08:17] MED LIST changes: +CYMB60CA3 PO; +PRED20TA PO; +ROZE8TAB16 PO; +VALA1TAB2 PO
[2017-03-03] MEDS ORDERED: NS 1,000 ML IV ONE (08:30)
[2017-03-03] MEDS ORDERED: PROPOFOL 200 MG/20 ML VIAL As Ordered ONE (09:36)
[2017-03-03] MEDS ORDERED: LIDOCAINE 2% INJ 100 MG/5 ML SDV (FOR ANES.) As Ordered ONE (09:36)
--- NOTE | 2017-03-03 09:48 | ROOR ---
Patient Name: Corrie Mercado Procedure Date: 03/03/2017 9:30 AM Date of : 1940 Age: 76 Room: [facility], [facility] Gender: Female Note Status: Finalized Procedure: Upper Endoscopy + Biopsies Indications: Heartburn Providers: Antonio Clements MD Referring MD: NOHEMI TYSON DO Requestrukhsana Provider: Medicines: Monitored Anesthesia Care Complications: No immediate complications. Procedure: Pre-Anesthesia Assessment: - The heart rate, respiratory rate, oxygen saturations, blood pressure, adequacy of pulmonary ventilation, and response to care were monitored throughout the procedure. The Endoscope was introduced through the mouth, and advanced to the second part of duodenum. The upper GI endoscopy was accomplished without difficulty. The patient tolerated the procedure well. Findings: The Z-line was irregular and was found 35 cm from the incisors. Multiple biopsies were obtained with cold forceps for evaluation to rule out Licona's Esophagus randomly at the gastroesophageal junction. A small hiatal hernia was present. No other significant abnormalities were identified in a careful examination of the stomach. The exam of the duodenum was otherwise normal. Impression: - Z-line irregular, 35 cm from the incisors. - Small hiatal hernia. - Multiple biopsies were obtained at the gastroesophageal junction. - The examination was otherwise normal. Recommendation: - Patient has a contact number available for emergencies. The signs and symptoms of potential delayed complications were discussed with the patient. Return to normal activities tomorrow. Written discharge instructions were provided to the patient. - High fiber diet. - Discharge patient to home. - Continue present medications. - Await pathology results. - Telephone GI clinic for pathology results in 1 week. - Return to referring physician. - The findings and recommendations were discussed with the patient's family. Antonio Clements MD Antonio Clements MD 03/03/2017 9:48:15 AM This report has been signed electronically. Number of Addenda: 0 Note Initiated On: 03/03/2017 9:30 AM Estimated Blood Loss: Estimated blood loss: none.
--- NOTE | 2017-03-03 10:07 | ROOR ---
Patient Name: Corrie Mercado Procedure Date: 03/03/2017 9:31 AM Date of : 1940 Age: 76 Room: [facility] Gender: Female Note Status: Finalized Procedure: Total Colonoscopy to Cecum + Bx. To r/o Microscopic Colitis Indications: Chronic diarrhea Providers: Antonio Clements MD Referring MD: NOHEMI TYSON DO Requesting Provider: Medicines: Monitored Anesthesia Care Complications: No immediate complications. Procedure: Pre-Anesthesia Assessment: - The heart rate, respiratory rate, oxygen saturations, blood pressure, adequacy of pulmonary ventilation, and response to care were monitored throughout the procedure. The Colonoscope was introduced through the anus and advanced to the cecum, identified by appendiceal orifice and ileocecal valve. The colonoscopy was performed without difficulty. The patient tolerated the procedure well. The quality of the bowel preparation was excellent. Findings: The perianal and digital rectal examinations were normal. Non-bleeding internal hemorrhoids were found during retroflexion. The hemorrhoids were small and Grade I (internal hemorrhoids that do not prolapse). Scattered small-mouthed diverticula were found in the recto-sigmoid colon, sigmoid colon and descending colon. Biopsies for histology were taken with a cold forceps from the ascending colon, transverse colon and descending colon for evaluation of microscopic colitis. The exam was otherwise without abnormality on direct and retroflexion views. Impression: - Non-bleeding internal hemorrhoids. - Diverticulosis in the recto-sigmoid colon, in the sigmoid colon and in the descending colon. Biopsied. - The examination was otherwise normal on direct and retroflexion views. - The exam was otherwise normal to the cecum. Recommendation: - Patient has a contact number available for emergencies. The signs and symptoms of potential delayed complications were discussed with the patient. Return to normal activities tomorrow. Written discharge instructions were provided to the patient. - High fiber diet. - Discharge patient to home. - Continue present medications. - Await pathology results. - Telephone GI clinic for pathology results in 1 week. - Repeat colonoscopy for symptoms only. - Return to referring physician. - Check Portal Online for Path Results.([email or web address]) - The findings and recommendations were discussed with the patient's family. Antonio Clements MD Antonio Clements MD 03/03/2017 10:06:49 AM This report has been signed electronically. Number of Addenda: 0 Note Initiated On: 03/03/2017 9:31 AM Estimated Blood Loss: Estimated blood loss: none.
[2017-03-03 10:25] VITALS: BP 139/69
== END 2017-03-03 10:45 | disposition home or self-care (01) ==
LOC: M OPP 08:17
PROVIDERS: ATTEND Internal Medicine Gastroenterology
DX: R19.7 Diarrhea, unspecified (principal); K64.0 First degree hemorrhoids; K57.30 Diverticulosis of large intestine without perforation or abscess without bleeding; R12 Heartburn; K22.8 Other specified diseases of esophagus; K44.9 Diaphragmatic hernia without obstruction or gangrene; R07.89 Other chest pain; Z86.79 Personal history of other diseases of the circulatory system; K86.9 Disease of pancreas, unspecified; M19.90 Unspecified osteoarthritis, unspecified site; I11.9 Hypertensive heart disease without heart failure; F41.9 Anxiety disorder, unspecified; F32.9 Major depressive disorder, single episode, unspecified; G47.30 Sleep apnea, unspecified; I51.81 Takotsubo syndrome; Z88.8 Allergy status to other drugs, medicaments and biological substances; Z79.899 Other long term (current) drug therapy; Z80.3 Family history of malignant neoplasm of breast; Z80.41 Family history of malignant neoplasm of ovary

== ENCOUNTER → 2017-07-06 | Outpatient (REF) | payer MEDICARE ==
[2017-07-06 11:56] LABS: ALBUMIN 3.8 GM/DL (3.2-5.2); ALBUMIN/GLOBULIN RATIO 1.23 (1.00-1.93); BILIRUBIN,TOTAL 0.6 MG/DL (0.2-1.0); CALCIUM LEVEL 9.2 MG/DL (8.8-10.2); CREATININE FOR GFR 1.2 MG/DL (0.55-1.02); FREE T4 0.98 NG/DL (0.76-1.46); GLOMERULAR FILTRATION RATE 46.5 (>39); POTASSIUM SERUM 4.3 MEQ/L (3.5-5.1); TOTAL PROTEIN 6.9 GM/DL (6.4-8.2)
== END ==
LOC: M SFHCCLAY 07:47
PROVIDERS: ATTEND Family Medicine
DX: E78.2 Mixed hyperlipidemia (principal); E07.9 Disorder of thyroid, unspecified; I10 Essential (primary) hypertension

== ENCOUNTER 2017-10-14 20:57 | Inpatient (IN) | payer MEDICARE ==
[2017-10-14 21:35] LABS: BASO # 0.1 10^3/uL (0.0-0.2); BASO % 0.3 % (0.0-1.0); EOS # 0.1 10^3/uL (0.0-0.50); EOS % 0.6 % (0.0-3.0); HEMATOCRIT 37.1 % (36.0-47.0); HEMOGLOBIN 12.1 g/dl (12.0-16.0); IMMATURE GRANULOCYTE % 0.6 % (0-3.0); LYMPH # 1.1 10^3/uL (1.5-4.5); LYMPH % 6.9 % (24.0-44.0); MEAN CORPUSCULAR HEMOGLOBIN 27.3 pg (27.0-33.0); MEAN CORPUSCULAR HGB CONC 32.6 g/dl (32.0-36.5); MEAN CORPUSCULAR VOLUME 83.7 fl (80.0-96.0); MONO # 0.7 10^3/uL (0.0-0.8); MONO % 4.3 % (0.0-5.0); NEUTROPHILS # 13.5 10^3/uL (1.8-7.7); NEUTROPHILS % 87.3 % (36.0-66.0); PLATELET COUNT, AUTOMATED 315 10^3/uL (150-450); RED BLOOD COUNT 4.43 10^6/uL (4.00-5.40); RED CELL DISTRIBUTION WIDTH 13.2 % (11.5-14.5); WHITE BLOOD COUNT 15.5 10^3/uL (4.0-10.0)
[2017-10-14 21:51] LABS: INR 0.91; PROTHROMBIN TIME 12.3 SECONDS (12.4-14.5)
[2017-10-14 21:52] LABS: PARTIAL THROMBOPLASTIN TIME 29.4 SECONDS (26.8-37.9)
[2017-10-14 22:03] LABS: ALBUMIN 3.8 GM/DL (3.2-5.2); ALBUMIN/GLOBULIN RATIO 0.93 (1.00-1.93); ALKALINE PHOSPHATASE 75 U/L (45-117); ALT/SGPT 19 U/L (12-78); ANION GAP 6 MEQ/L (8-16); AST/SGOT 13 U/L (7-37); BILIRUBIN,DIRECT < 0.1 MG/DL (0.0-0.2); BILIRUBIN,TOTAL 0.5 MG/DL (0.2-1.0); BLOOD UREA NITROGEN 20 MG/DL (7-18); CARBON DIOXIDE LEVEL 29 MEQ/L (21-32); CHLORIDE LEVEL 105 MEQ/L (98-107); CPK CREATINE PHOSPHOKINASE 74 U/L (26-192); CREATININE FOR GFR 1.22 MG/DL (0.55-1.30); GLOMERULAR FILTRATION RATE 45.6 (>39); GLUCOSE, FASTING 149 MG/DL (70-100); LIPASE 132 U/L (73-393); POTASSIUM SERUM 3.4 MEQ/L (3.5-5.1); SODIUM LEVEL 140 MEQ/L (136-145); TOTAL PROTEIN 7.9 GM/DL (6.4-8.2); TROPONIN I < 0.02 NG/ML (< 0.10)
[2017-10-14 22:05] LABS: CK-MB VALUE MASS < 1.0 NG/ML (<3.6); MB/CK RELATIVE INDEX 1.35 (< OR =4)
[2017-10-14] MEDS: ONDANSETRON 4MG/2ML VIAL (J2405) IV (22:06)
[2017-10-14] MEDS: MORPHINE 4 MG/ML 1ML VIAL (J2270) IV (22:07)
[2017-10-14] MEDS ORDERED: ISOVUE-370 76% 100ML VIAL (Q9967) As Ordered (22:18)
[2017-10-15] MEDS: NS 500 ML IV (00:46)
[2017-10-15 01:07] LABS: KETONE, URINE AUTO RFX NEGATIVE (NEGATIVE); NITRITE, URINE AUTO RFX NEGATIVE (NEGATIVE); RBC, URINE AUTO RFX 11 /HPF (0-3); SPECIFIC GRAVITY UR AUTO RFX 1.044 (1.002-1.035); SQUAM EPITHELIAL CELL UR AURFX 0 /HPF (0-6); WBC, URINE AUTO RFX 4 /HPF (0-3)
[2017-10-15 01:08] LABS: LEUKOCYTE ESTERASE UR AUTO RFX 1+ (NEGATIVE)
[2017-10-15] MEDS: CIPROFLOXACIN 400 MG in APPROPRIATE DILUENT 1 EA IV ×2 (02:15→14:04)
[2017-10-15] MEDS: metroNIDAZOLE 500 MG in APPROPRIATE DILUENT 1 EA IV ×3 (03:18→19:45)
[2017-10-15] MEDS ORDERED: NORCO, ANEXSIA 5/325MG TABLET (HYDROcodone/ACETAMINOPHEN) PO (03:30)
[2017-10-15] MEDS ORDERED: OMEPRAZOLE 20 MG CAP PO (03:30)
[2017-10-15] MEDS ORDERED: PILL CUTTER/CRUSHER XX (04:15)
[2017-10-15] MEDS: LR 1,000 ML IV ×3 (05:48→20:00)
[2017-10-15] MEDS: ACETAMINOPHEN TAB 650MG DOSE (2X325MG) PO ×2 (05:49→22:41)
[2017-10-15] MEDS: DULoxetine 30 MG CAP (CYMBALTA) PO (09:20)
[2017-10-15] MEDS: busPIRone 5 MG TAB PO ×2 (09:20→19:45)
[2017-10-15] MEDS: VALSARTAN 80 MG TAB (DIOVAN) PO (09:20)
[2017-10-15] MEDS: ONDANSETRON 4MG/2ML VIAL (J2405) IV ×2 (09:21→18:08)
[2017-10-15] MEDS: KETOROLAC 30 MG/ML VIAL (J1885) IV ×2 (09:21→19:46)
[2017-10-15 09:26] LABS: BASO # 0.1 10^3/uL (0.0-0.2); BASO % 0.3 % (0.0-1.0); EOS # 0.2 10^3/uL (0.0-0.50); EOS % 1.1 % (0.0-3.0); HEMATOCRIT 36.9 % (36.0-47.0); HEMOGLOBIN 12.1 g/dl (12.0-16.0); IMMATURE GRANULOCYTE % 0.7 % (0-3.0); LYMPH % 13.6 % (24.0-44.0); MEAN CORPUSCULAR HEMOGLOBIN 27.6 pg (27.0-33.0); MEAN CORPUSCULAR HGB CONC 32.8 g/dl (32.0-36.5); MEAN CORPUSCULAR VOLUME 84.1 fl (80.0-96.0); MONO # 1.2 10^3/uL (0.0-0.8); NEUTROPHILS % 76.3 % (36.0-66.0); PLATELET COUNT, AUTOMATED 339 10^3/uL (150-450); RED BLOOD COUNT 4.39 10^6/uL (4.00-5.40); RED CELL DISTRIBUTION WIDTH 13.2 % (11.5-14.5); WHITE BLOOD COUNT 14.4 10^3/uL (4.0-10.0)
[2017-10-15 10:18] LABS: ALBUMIN 3.8 GM/DL (3.2-5.2); ALBUMIN/GLOBULIN RATIO 1.09 (1.00-1.93); ALKALINE PHOSPHATASE 75 U/L (45-117); ALT/SGPT 18 U/L (12-78); ANION GAP 9 MEQ/L (8-16); AST/SGOT 12 U/L (7-37); BILIRUBIN,TOTAL 0.8 MG/DL (0.2-1.0); BLOOD UREA NITROGEN 15 MG/DL (7-18); CALCIUM LEVEL 8.8 MG/DL (8.8-10.2); CARBON DIOXIDE LEVEL 26 MEQ/L (21-32); CHLORIDE LEVEL 106 MEQ/L (98-107); CREATININE FOR GFR 1.15 MG/DL (0.55-1.30); GLOMERULAR FILTRATION RATE 48.8 (>39); GLUCOSE, FASTING 105 MG/DL (70-100); POTASSIUM SERUM 3.7 MEQ/L (3.5-5.1); SODIUM LEVEL 141 MEQ/L (136-145); TOTAL PROTEIN 7.3 GM/DL (6.4-8.2)
[2017-10-15] MEDS: MORPHINE 4 MG/ML 1ML VIAL (J2270) IV (14:05)
[2017-10-15] MEDS: METOPROLOL TART 25 MG TABLET PO (19:46)
[2017-10-16] MEDS: CIPROFLOXACIN 400 MG in APPROPRIATE DILUENT 1 EA IV (02:52)
[2017-10-16] MEDS: MORPHINE 4 MG/ML 1ML VIAL (J2270) IV (02:56)
[2017-10-16] MEDS: metroNIDAZOLE 500 MG in APPROPRIATE DILUENT 1 EA IV (03:04)
[2017-10-16] MEDS: LR 1,000 ML IV (04:00)
[2017-10-16 06:34] LABS: BASO % 0.4 % (0.0-1.0); EOS # 0.4 10^3/uL (0.0-0.50); EOS % 5.4 % (0.0-3.0); HEMATOCRIT 31.8 % (36.0-47.0); IMMATURE GRANULOCYTE % 0.6 % (0-3.0); LYMPH # 1.4 10^3/uL (1.5-4.5); LYMPH % 20.7 % (24.0-44.0); MEAN CORPUSCULAR HEMOGLOBIN 27.5 pg (27.0-33.0); MEAN CORPUSCULAR HGB CONC 31.4 g/dl (32.0-36.5); MEAN CORPUSCULAR VOLUME 87.4 fl (80.0-96.0); MONO # 0.7 10^3/uL (0.0-0.8); MONO % 10.9 % (0.0-5.0); NEUTROPHILS # 4.2 10^3/uL (1.8-7.7); RED BLOOD COUNT 3.64 10^6/uL (4.00-5.40); RED CELL DISTRIBUTION WIDTH 13.4 % (11.5-14.5); WHITE BLOOD COUNT 6.8 10^3/uL (4.0-10.0)
[2017-10-16 06:45] LABS: PLATELET COUNT, AUTOMATED 236 10^3/uL (150-450)
[2017-10-16 06:53] LABS: ALBUMIN 2.9 GM/DL (3.2-5.2); ALBUMIN/GLOBULIN RATIO 0.94 (1.00-1.93); ALKALINE PHOSPHATASE 56 U/L (45-117); ALT/SGPT 16 U/L (12-78); ANION GAP 6 MEQ/L (8-16); AST/SGOT 14 U/L (7-37); BILIRUBIN,TOTAL 0.6 MG/DL (0.2-1.0); BLOOD UREA NITROGEN 14 MG/DL (7-18); CALCIUM LEVEL 7.9 MG/DL (8.8-10.2); CARBON DIOXIDE LEVEL 28 MEQ/L (21-32); CHLORIDE LEVEL 108 MEQ/L (98-107); CREATININE FOR GFR 1.13 MG/DL (0.55-1.30); GLOMERULAR FILTRATION RATE 49.8 (>39); GLUCOSE, FASTING 90 MG/DL (70-100); POTASSIUM SERUM 3.7 MEQ/L (3.5-5.1); SODIUM LEVEL 142 MEQ/L (136-145)
[2017-10-16] MEDS: busPIRone 5 MG TAB PO (09:05)
[2017-10-16] MEDS: DULoxetine 30 MG CAP (CYMBALTA) PO (09:05)
[2017-10-16] MEDS: VALSARTAN 80 MG TAB (DIOVAN) PO (09:06)
== END 2017-10-16 10:45 | disposition home or self-care (01) | DRG 446 ==
LOC: M ED INP 10-15 03:25 → M ED 20:57 → M MS5PR 10-15 05:09
DX: K80.00 Calculus of gallbladder with acute cholecystitis without obstruction (principal); E78.2 Mixed hyperlipidemia; I10 Essential (primary) hypertension; K21.9 Gastro-esophageal reflux disease without esophagitis; F41.9 Anxiety disorder, unspecified; F32.9 Major depressive disorder, single episode, unspecified; G47.33 Obstructive sleep apnea (adult) (pediatric); E66.9 Obesity, unspecified; Z79.899 Other long term (current) drug therapy; Z88.8 Allergy status to other drugs, medicaments and biological substances; Z88.0 Allergy status to penicillin

== ENCOUNTER → 2017-10-14 | Outpatient (REF) | payer MEDICARE ==
[2017-10-14 17:17] LABS: ALBUMIN 3.7 GM/DL (3.2-5.2); ALBUMIN/GLOBULIN RATIO 1.06 (1.00-1.93); ALKALINE PHOSPHATASE 76 U/L (45-117); ALT/SGPT 19 U/L (12-78); ANION GAP 7 MEQ/L (8-16); AST/SGOT 11 U/L (7-37); BILIRUBIN,TOTAL 0.7 MG/DL (0.2-1.0); BLOOD UREA NITROGEN 15 MG/DL (7-18); CALCIUM LEVEL 8.6 MG/DL (8.8-10.2); CARBON DIOXIDE LEVEL 28 MEQ/L (21-32); CHLORIDE LEVEL 107 MEQ/L (98-107); CHOLESTEROL LEVEL 220 MG/DL (<200); CHOLESTEROL RISK RATIO 3.728 (<5); CREATININE FOR GFR 1.08 MG/DL (0.55-1.30); GLOMERULAR FILTRATION RATE 52.5 (>39); GLUCOSE, FASTING 104 MG/DL (70-100); HDL CHOLESTEROL 59 MG/DL (>40); LDL CHOLESTEROL 132.8 MG/DL (<100); NON-HDL-C 161 MG/DL; POTASSIUM SERUM 4.2 MEQ/L (3.5-5.1); SODIUM LEVEL 142 MEQ/L (136-145); TOTAL PROTEIN 7.2 GM/DL (6.4-8.2); TRIGLYCERIDES LEVEL 141 MG/DL (<150)
== END ==
LOC: M SFHCCLAY 09:05
DX: E78.2 Mixed hyperlipidemia (principal); I10 Essential (primary) hypertension

== ENCOUNTER → 2017-11-10 | Outpatient (CLI) | payer MEDICARE | LOC: M CLY 10:23 | DX: J98.4 Other disorders of lung (principal); R05 Cough | CPT/HCPCS: 71046; G0463 ==

== ENCOUNTER → 2017-11-17 | Outpatient (CLI) | payer MEDICARE ==
[~2017-11-17] MED LIST changes: -AMLO5TAB2 PO; -AMOX875T2 PO; -CYMB60CA3 PO; -EQ O20TA4; -ESCI20TA; -ESCI20TA PO; -HYDR12.55 PO; +ISOVUE-370 76% 100ML VIAL (Q9967) As Ordered; -METO1TAB87 PO; -METO25TA4 PO; -OMEP20CA3 PO; -PRED20TA PO; -ROZE8TAB16 PO; -VALA1TAB2 PO; -ZOFR20TA PO
== END ==
LOC: M RAD 14:30
DX: R93.8 Abnormal findings on diagnostic imaging of other specified body structures (principal)
CPT/HCPCS: Q9967

== ENCOUNTER 2017-12-04 06:22 | Day surgery (SDC) | payer MEDICARE ==
[2017-12-04] MEDS: LR 1,000 ML IV (07:27)
[2017-12-04] MEDS: cefoTEtan INJ 2GM VIAL (S0074 PER 500MG) As Ordered (08:14)
[2017-12-04] MEDS: cefoTEtan DISODIUM 2 GM in D5W MINI-BAG PLUS 50 ML IV (08:14)
[2017-12-04] MEDS ORDERED: dexameTHASONE 4 MG/ML 1ML VIAL (J1100) As Ordered ×2 (08:27)
[2017-12-04] MEDS ORDERED: fentaNYL 100 MCG/2 ML INJECTION (J3010) As Ordered ×2 (08:51→08:54)
[2017-12-04] MEDS ORDERED: ONDANSETRON 4MG/2ML VIAL (J2405) As Ordered (08:54)
[2017-12-04] MEDS ORDERED: ROCURONIUM BROMIDE 50 MG/5 ML VIAL As Ordered (08:54)
[2017-12-04] MEDS ORDERED: LIDOCAINE 2% INJ 100 MG/5 ML SDV (FOR ANES.) As Ordered (08:54)
[2017-12-04] MEDS ORDERED: PROPOFOL 200 MG/20 ML VIAL As Ordered (08:54)
[2017-12-04] MEDS ORDERED: METOCLOPRAMIDE INJ 10MG/2ML VIAL (J2765) As Ordered (08:54)
[2017-12-04] MEDS ORDERED: NEOSTIGMINE 10 MG/10 ML VIAL (J2710) As Ordered (09:19)
[2017-12-04] MEDS ORDERED: GLYCOPYRROLATE INJ 0.2 MG/ML 2 ML VIAL As Ordered (09:19)
[2017-12-04] MEDS: BUPIVACAINE HCL 0.25% 30 ML VIAL As Ordered (09:36)
[2017-12-04] MEDS ORDERED: IBUPROFEN 400 MG TAB PO (10:15)
[2017-12-04] MEDS ORDERED: ONDANSETRON 4MG/2ML VIAL (J2405) IV (10:15)
[2017-12-04] MEDS ORDERED: fentaNYL 100 MCG/2 ML INJECTION (J3010) IV (10:15)
[2017-12-04] MEDS ORDERED: ACETAMINOPHEN TAB 650MG DOSE (2X325MG) PO (10:15)
[2017-12-04] MEDS ORDERED: NORCO, ANEXSIA 5/325MG TABLET (HYDROcodone/ACETAMINOPHEN) PO (10:15)
[2017-12-04] MEDS ORDERED: LR 1,000 ML IV (10:15)
[2017-12-04] MEDS: PERCOCET 5MG/325MG TAB PO ×2 (10:15→10:40)
== END 2017-12-04 12:40 | disposition home or self-care (01) ==
LOC: M SDC 06:22
DX: K80.10 Calculus of gallbladder with chronic cholecystitis without obstruction (principal); I42.9 Cardiomyopathy, unspecified; F41.9 Anxiety disorder, unspecified; F32.9 Major depressive disorder, single episode, unspecified; G47.33 Obstructive sleep apnea (adult) (pediatric); R91.8 Other nonspecific abnormal finding of lung field; R06.00 Dyspnea, unspecified; K52.839 Microscopic colitis, unspecified; R06.83 Snoring; A60.9 Anogenital herpesviral infection, unspecified; I11.9 Hypertensive heart disease without heart failure; R05 Cough; R09.82 Postnasal drip; R94.2 Abnormal results of pulmonary function studies; K21.9 Gastro-esophageal reflux disease without esophagitis; E78.00 Pure hypercholesterolemia, unspecified; I51.81 Takotsubo syndrome; Z88.0 Allergy status to penicillin; Z88.8 Allergy status to other drugs, medicaments and biological substances; Z79.899 Other long term (current) drug therapy; Z90.710 Acquired absence of both cervix and uterus
CPT/HCPCS: 47562

== ENCOUNTER → 2018-02-23 | Outpatient (CLI) | payer MEDICARE | LOC: M RAD 10:48 | DX: J84.10 Pulmonary fibrosis, unspecified (principal); I77.0 Arteriovenous fistula, acquired | CPT/HCPCS: 71250 ==

== ENCOUNTER → 2018-06-21 | Outpatient (REF) | payer MEDICARE ==
[2018-06-21 11:39] LABS: HEMATOCRIT 38.2 % (36.0-47.0); HEMOGLOBIN 12.6 g/dl (12.0-15.5); MEAN CORPUSCULAR HEMOGLOBIN 28.3 pg (27.0-33.0); MEAN CORPUSCULAR VOLUME 85.7 fl (80.0-96.0); PLATELET COUNT, AUTOMATED 350 10^3/uL (150-450); RED BLOOD COUNT 4.46 10^6/uL (4.00-5.40); RED CELL DISTRIBUTION WIDTH 12.7 % (11.5-14.5)
[2018-06-21 12:50] LABS: ALBUMIN 3.8 GM/DL (3.2-5.2); ALBUMIN/GLOBULIN RATIO 1.09 (1.00-1.93); ALKALINE PHOSPHATASE 99 U/L (45-117); ALT/SGPT 22 U/L (12-78); ANION GAP 8 MEQ/L (8-16); AST/SGOT 14 U/L (7-37); BILIRUBIN,TOTAL 0.3 MG/DL (0.2-1.0); BLOOD UREA NITROGEN 20 MG/DL (7-18); CALCIUM LEVEL 9.7 MG/DL (8.8-10.2); CARBON DIOXIDE LEVEL 28 MEQ/L (21-32); CHLORIDE LEVEL 104 MEQ/L (98-107); CHOLESTEROL LEVEL 213 MG/DL (<200); CHOLESTEROL RISK RATIO 4.018 (<5); CREATININE FOR GFR 1.26 MG/DL (0.55-1.30); FREE T4 1.11 NG/DL (0.76-1.46); GLOMERULAR FILTRATION RATE 43.8 (>39); GLUCOSE, FASTING 115 MG/DL (70-100); HDL CHOLESTEROL 53 MG/DL (>40); LDL CHOLESTEROL 128 MG/DL (<100); NON-HDL-C 160 MG/DL; POTASSIUM SERUM 4.3 MEQ/L (3.5-5.1); SODIUM LEVEL 140 MEQ/L (136-145); TOTAL PROTEIN 7.3 GM/DL (6.4-8.2); TRIGLYCERIDES LEVEL 160 MG/DL (<150)
== END ==
LOC: M SFHCCLAY 07:53
DX: K21.9 Gastro-esophageal reflux disease without esophagitis (principal); E78.2 Mixed hyperlipidemia; E07.9 Disorder of thyroid, unspecified
CPT/HCPCS: 84443

== ENCOUNTER → 2018-09-10 | Outpatient (REF) | payer MEDICARE ==
[~2018-09-10] MED LIST changes: +AMLO5TAB6 PO; +AMOX875T2 PO; +BUSP1TAB PO; +BUSP5TA PO; +CYMB60CA3 PO; +DULO1CAP3 PO; +EQ O20TA4; +ESCI20TA; +ESCI20TA PO; +HYDR12.55 PO; -ISOVUE-370 76% 100ML VIAL (Q9967) As Ordered; +METO1TAB87 PO; +METO25TA4 PO; +NITR0.4S14 SL; +OMEP20CA3 PO; +PRED20TA PO; +PRESCAP6 PO; +ROZE8TAB16 PO; +VALA1TAB2 PO; +VALS1TAB46 PO; +ZOFR4TAB16 PO
[2018-09-10 12:11] LABS: CALCIUM LEVEL 9.5 MG/DL (8.8-10.2); CREATININE FOR GFR 1.19 MG/DL (0.55-1.30); GLOMERULAR FILTRATION RATE 46.8 (>39); POTASSIUM SERUM 4.1 MEQ/L (3.5-5.1)
[2018-09-10 13:08] LABS: HEMOGLOBIN A1c 5.8 %
== END ==
LOC: M SFHCCLAY 08:08
PROVIDERS: ATTEND Family Medicine
DX: R73.01 Impaired fasting glucose (principal)

== ENCOUNTER → 2018-09-15 | Outpatient (CLI) | payer MEDICARE ==
--- NOTE | 2018-09-15 12:20 | REP ---
Chest two views HISTORY: Cough Comparison: 11/10/2017 An increase in interstitial markings is present in the lungs consistent with chronic interstitial change. The heart is normal in size. The pulmonary vasculature is normal in appearance. The bony structure is intact. IMPRESSION: Chronic interstitial change.
== END ==
LOC: M CLY 11:15
PROVIDERS: ATTEND Family Medicine
DX: R91.8 Other nonspecific abnormal finding of lung field (principal); R05 Cough
CPT/HCPCS: 71046; G0463

== ENCOUNTER → 2018-11-10 | Outpatient (REF) | payer MEDICARE ==
[~2018-11-10] MED LIST changes: -VALS1TAB46 PO; +VALS1TAB66 PO
== END ==
LOC: M SFHCPLAZ 17:36
PROVIDERS: ATTEND Dermatology
DX: C44.319 Basal cell carcinoma of skin of other parts of face (principal); D22.5 Melanocytic nevi of trunk; L57.0 Actinic keratosis

== ENCOUNTER → 2018-12-07 | Outpatient (REF) | payer MEDICARE ==
[2018-12-07 16:40] LABS: HEMATOCRIT 40.5 % (36.0-47.0); HEMOGLOBIN 12.9 g/dl (12.0-15.5); MEAN CORPUSCULAR HGB CONC 31.9 g/dl (32.0-36.5); PLATELET COUNT, AUTOMATED 313 10^3/uL (150-450); WHITE BLOOD COUNT 6.4 10^3/uL (4.0-10.0)
[2018-12-07 16:43] LABS: ALBUMIN 3.7 GM/DL (3.2-5.2); BILIRUBIN,TOTAL 0.5 MG/DL (0.2-1.0); CALCIUM LEVEL 9.1 MG/DL (8.8-10.2); CREATININE FOR GFR 1.17 MG/DL (0.55-1.30); GLOMERULAR FILTRATION RATE 47.7 (>39); POTASSIUM SERUM 4.2 MEQ/L (3.5-5.1); TOTAL PROTEIN 7.9 GM/DL (6.4-8.2)
== END ==
LOC: M SFHCCLAY 11:36
PROVIDERS: ATTEND Family Medicine
DX: R10.32 Left lower quadrant pain (principal)
CPT/HCPCS: 80053; 85027; G0463

== ENCOUNTER → 2018-12-08 | Outpatient (CLI) | payer MEDICARE ==
[~2018-12-08] MED LIST changes: +GASTROGRAFIN SOLUTION 30ML (Q9963) As Ordered ONE; +ISOVUE-370 76% 100ML VIAL (Q9967) As Ordered ONE
--- NOTE | 2018-12-08 13:07 | REP ---
CT of the abdomen and pelvis with IV and oral contrast for right lower quadrant pain: Comparison is 10/14/2017. The patient has a cholecystectomy and hysterectomy and clinical history of cardiomyopathy. The visualized lung manning are unremarkable except for curvilinear parenchymal scar in the lower lobe of the left lung, unchanged. The hepatic parenchyma is homogeneous. There are surgical clips in the gallbladder fossa as an interval change. The pancreas and spleen are normal size and unremarkable. The adrenals are unremarkable. There is a right renal lower pole exophytic 2.0 cm simple cyst, not significantly changed. There is a left renal upper pole 1.4 cm cortical cyst, unchanged. The kidneys are otherwise unremarkable. Abdominal aorta is unremarkable. There is no retroperitoneal adenopathy or mass. There is no bowel distension or obstruction. There are occasional sigmoid colon diverticula. There is no CT evidence of diverticulitis. Pelvis: The appendix and terminal ileum are unremarkable. The vaginal cuff and adnexa are unremarkable. The bladder is unremarkable. There is no adenopathy or ascites. Impression: Sigmoid colon diverticulosis without diverticulitis. No ascites, adenopathy or mass. Cholecystectomy and hysterectomy. The appendix, vaginal cuff and adnexa are unremarkable. Electronically Signed by Fei Perrin MD 12/08/2018 12:58 P
== END ==
LOC: M RAD 10:29
PROVIDERS: ATTEND Family Medicine
DX: K57.92 Diverticulitis of intestine, part unspecified, without perforation or abscess without bleeding (principal); Z90.49 Acquired absence of other specified parts of digestive tract; Z90.79 Acquired absence of other genital organ(s)
CPT/HCPCS: 74177; Q9963; Q9967

== ENCOUNTER → 2018-12-28 | Outpatient (REF) | payer MEDICARE ==
[~2018-12-28] MED LIST changes: -GASTROGRAFIN SOLUTION 30ML (Q9963) As Ordered ONE; -ISOVUE-370 76% 100ML VIAL (Q9967) As Ordered ONE
== END ==
LOC: M SFHCCLAY 12:53
PROVIDERS: ATTEND Nurse Practitioner Family
DX: R10.9 Unspecified abdominal pain (principal)
CPT/HCPCS: 81002; 87086; G0463

== ENCOUNTER → 2019-10-11 | Outpatient (REF) | payer MEDICARE ==
[~2019-10-11] MED LIST changes: -DULO1CAP3 PO; +DULO1CAP6 PO; +OMEP1CAP73 PO; -OMEP20CA3 PO; -VALA1TAB2 PO; +VALA1TAB5 PO
[2019-10-12 12:24] LABS: HEMATOCRIT 39.6 % (36.0-47.0); HEMOGLOBIN 12.8 g/dl (12.0-15.5); MEAN CORPUSCULAR HEMOGLOBIN 27.5 pg (27.0-33.0); MEAN CORPUSCULAR HGB CONC 32.3 g/dl (32.0-36.5); MEAN CORPUSCULAR VOLUME 85.2 fl (80.0-96.0); PLATELET COUNT, AUTOMATED 365 10^3/uL (150-450); RED BLOOD COUNT 4.65 10^6/uL (4.00-5.40); WHITE BLOOD COUNT 13.7 10^3/uL (4.0-10.0)
[2019-10-12 12:51] LABS: ALBUMIN 3.4 GM/DL (3.2-5.2); BILIRUBIN,TOTAL 1.1 MG/DL (0.2-1.0); CALCIUM LEVEL 9.4 MG/DL (8.8-10.2); CREATININE FOR GFR 1.47 MG/DL (0.55-1.30); GLOMERULAR FILTRATION RATE 36.6 (>39); POTASSIUM SERUM 3.2 MEQ/L (3.5-5.1); TOTAL PROTEIN 7.5 GM/DL (6.4-8.2)
== END ==
LOC: M SFHCCLAY 14:47
PROVIDERS: ATTEND Family Medicine
DX: K52.9 Noninfective gastroenteritis and colitis, unspecified (principal); I10 Essential (primary) hypertension
CPT/HCPCS: 80053; 85027; G0463

== ENCOUNTER → 2019-10-14 | Outpatient (REF) | payer MEDICARE ==
[2019-10-14 11:36] LABS: HEMATOCRIT 38.2 % (36.0-47.0); HEMOGLOBIN 12.4 g/dl (12.0-15.5); MEAN CORPUSCULAR HEMOGLOBIN 27.7 pg (27.0-33.0); MEAN CORPUSCULAR HGB CONC 32.5 g/dl (32.0-36.5); MEAN CORPUSCULAR VOLUME 85.3 fl (80.0-96.0); PLATELET COUNT, AUTOMATED 400 10^3/uL (150-450); RED BLOOD COUNT 4.48 10^6/uL (4.00-5.40); WHITE BLOOD COUNT 20.6 10^3/uL (4.0-10.0)
[2019-10-14 12:10] LABS: CREATININE FOR GFR 1.17 MG/DL (0.55-1.30); GLOMERULAR FILTRATION RATE 47.6 (>39)
== END ==
LOC: M SFHCCLAY 07:34
PROVIDERS: ATTEND Family Medicine
DX: K52.9 Noninfective gastroenteritis and colitis, unspecified (principal)

== ENCOUNTER → 2020-05-28 | Outpatient (REF) | payer MEDICARE ==
[~2020-05-28] MED LIST changes: +AMLO1TAB24 PO; -AMLO5TAB6 PO
[2020-05-28 11:43] LABS: HEMATOCRIT 39.4 % (36.0-47.0); HEMOGLOBIN 12.4 g/dl (12.0-15.5); MEAN CORPUSCULAR HEMOGLOBIN 27.4 pg (27.0-33.0); MEAN CORPUSCULAR HGB CONC 31.5 g/dl (32.0-36.5); MEAN CORPUSCULAR VOLUME 87.2 fl (80.0-96.0); PLATELET COUNT, AUTOMATED 336 10^3/uL (150-450); RED BLOOD COUNT 4.52 10^6/uL (4.00-5.40); WHITE BLOOD COUNT 5.3 10^3/uL (4.0-10.0)
[2020-05-28 12:09] LABS: CALCIUM LEVEL 9.4 MG/DL (8.8-10.2); CREATININE FOR GFR 1.4 MG/DL (0.55-1.30); GLOMERULAR FILTRATION RATE 38.6 (>39)
== END ==
LOC: M SFHCCLAY 07:44
PROVIDERS: ATTEND Family Medicine
DX: K52.9 Noninfective gastroenteritis and colitis, unspecified (principal); I10 Essential (primary) hypertension

== ENCOUNTER → 2020-09-28 | Outpatient (REF) | payer MEDICARE ==
[~2020-09-28] MED LIST changes: -ESCI20TA; -ESCI20TA PO; +ESCI20TA16; +ESCI20TA16 PO
[2020-09-28 16:24] LABS: HEMATOCRIT 41.6 % (36.0-47.0); HEMOGLOBIN 13.1 g/dl (12.0-15.5); MEAN CORPUSCULAR HEMOGLOBIN 27.4 pg (27.0-33.0); MEAN CORPUSCULAR HGB CONC 31.5 g/dl (32.0-36.5); PLATELET COUNT, AUTOMATED 322 10^3/uL (150-450); RED BLOOD COUNT 4.78 10^6/uL (4.00-5.40); WHITE BLOOD COUNT 8.7 10^3/uL (4.0-10.0)
[2020-09-28 16:47] LABS: CALCIUM LEVEL 9.8 MG/DL (8.8-10.2); CREATININE FOR GFR 1.39 MG/DL (0.55-1.30); GLOMERULAR FILTRATION RATE 38.9 (>39); POTASSIUM SERUM 4.6 MEQ/L (3.5-5.1); URIC ACID 8.1 MG/DL (2.6-6.0)
== END ==
LOC: M SFHCCLAY 10:39
PROVIDERS: ATTEND Family Medicine
DX: M10.079 Idiopathic gout, unspecified ankle and foot (principal)
CPT/HCPCS: 80048; 84550; 85027; G0463

== ENCOUNTER → 2021-01-16 | Outpatient (CLI) | payer MEDICARE ==
--- NOTE | 2021-01-16 13:21 | DEXAMM ---
INDICATION: Z78.0 MENOPAUSE. COMPARISON: 12/08/2016 as well as other prior exams. TECHNIQUE: Bone density was measured using dual-energy x-ray absorptiometry (DEXA). FINDINGS: AP SPINE L1-L4 BMD 0.983 g/cm2 Young Adult T-Score -1.7 Age Matched Z-Score 0.1. LT FEMUR, TOTAL BMD 0.923 g/cm2 Young Adult T-Score -0.7 Age Matched Z-Score 1.3. LT NECK BMD 0.848 g/cm2 Young Adult T-Score -1.4 Age Matched Z-Score 0.8. RT FEMUR, TOTAL BMD 0.963 g/cm2 Young Adult T-Score -0.4 Age Matched Z-Score 1.6. RT NECK BMD 0.818 g/cm2 Young Adult T-Score -1.6 Age Matched Z-Score 0.6. IMPRESSION: There is low bone density of the spine. There is low bone density of the left hip. There is low bone density of the right hip. The density of the spine has decreased 6.5% since the initial exam on 05/02/1999. The density of the spine decreased 10.4% since most recent exam on 12/08/2016. The density of the left hip has decreased 4.0% since initial exam on 05/02/1999. The density of the left hip has decreased 5.4% since most recent exam on 12/08/2016. The density of the right hip has decreased 3.3% since the initial exam on 06/19/2009. The density of the right hip has decreased 4.7% since the most recent exam on 12/08/2016. FOLLOW-UP: Recommendation for the next bone density exam: 2 years. <Electronically signed by Fei Urbina > 01/16/21 [id number]
== END ==
LOC: M WHC 11:35
PROVIDERS: ATTEND Family Medicine
DX: Z78.0 Asymptomatic menopausal state (principal)

== ENCOUNTER → 2021-03-25 | Outpatient (REF) | payer MEDICARE ==
[2021-03-25 18:13] LABS: FREE T4 1.13 NG/DL (0.76-1.46); THYROID STIMULATING HORMONE 2.63 uIU/ML (0.358-3.740)
== END ==
LOC: M LABDRAWC 16:18
PROVIDERS: ATTEND Internal Medicine Gastroenterology
DX: K52.831 Collagenous colitis (principal); E07.9 Disorder of thyroid, unspecified

== ENCOUNTER → 2021-04-10 | Outpatient (REF) | payer MEDICARE | LOC: M LAB REF 16:02 | PROVIDERS: ATTEND Internal Medicine Gastroenterology | DX: K52.831 Collagenous colitis (principal) ==

== ENCOUNTER → 2021-08-21 | Outpatient (REF) | payer MEDICARE ==
[~2021-08-21] MED LIST changes: -CYMB60CA3 PO; +CYMB60CA4 PO
== END ==
LOC: M LAB REF 17:26
PROVIDERS: ATTEND Nurse Practitioner Family
DX: L82.1 Other seborrheic keratosis (principal)

== ENCOUNTER → 2022-01-14 | Outpatient (REF) | payer MEDICARE ==
[2022-01-14 11:48] LABS: HEMATOCRIT 37.8 % (36.0-47.0); MEAN CORPUSCULAR HEMOGLOBIN 28.4 pg (27.0-33.0); MEAN CORPUSCULAR HGB CONC 31.7 g/dl (32.0-36.5); MEAN CORPUSCULAR VOLUME 89.6 fl (80.0-96.0); PLATELET COUNT, AUTOMATED 284 10^3/uL (150-450); RED BLOOD COUNT 4.22 10^6/uL (4.00-5.40); WHITE BLOOD COUNT 6.3 10^3/uL (4.0-10.0)
[2022-01-14 12:15] LABS: ALBUMIN 3.5 GM/DL (3.2-5.2); BILIRUBIN,TOTAL 0.6 MG/DL (0.2-1.0); CALCIUM LEVEL 9.7 MG/DL (8.8-10.2); CREATININE FOR GFR 1.2 MG/DL (0.55-1.30); FREE T4 1.13 NG/DL (0.76-1.46); POTASSIUM SERUM 3.6 MEQ/L (3.5-5.1); THYROID STIMULATING HORMONE 4.35 uIU/ML (0.358-3.740); TOTAL PROTEIN 6.3 GM/DL (6.4-8.2)
== END ==
LOC: M SFHCCLAY 08:51
PROVIDERS: ATTEND Family Medicine
DX: M85.9 Disorder of bone density and structure, unspecified (principal); I10 Essential (primary) hypertension

== ENCOUNTER → 2022-04-11 | Outpatient (CLI) | payer MEDICARE | LOC: M PLAIMG 07:47 | PROVIDERS: ATTEND Family Medicine | DX: U07.1 COVID-19 (principal); R26.89 Other abnormalities of gait and mobility; R41.0 Disorientation, unspecified ==

== ENCOUNTER → 2022-07-29 | Outpatient (REF) | payer MEDICARE ==
[2022-07-29 18:18] LABS: BASO # 0.1 10^3/uL (0.0-0.2); BASO % 0.7 % (0.0-1.0); EOS # 0.1 10^3/uL (0.0-0.5); EOS % 0.7 % (0.0-3.0); HEMATOCRIT 37.5 % (36.0-47.0); HEMOGLOBIN 11.9 g/dl (12.0-15.5); LYMPH # 1.4 10^3/uL (1.5-5.0); LYMPH % 15.6 % (24.0-44.0); MEAN CORPUSCULAR HEMOGLOBIN 28.3 pg (27.0-33.0); MEAN CORPUSCULAR HGB CONC 31.7 g/dl (32.0-36.5); MEAN CORPUSCULAR VOLUME 89.1 fl (80.0-96.0); MONO # 0.6 10^3/uL (0.0-0.8); MONO % 6.7 % (2.0-8.0); NEUTROPHILS # 6.8 10^3/uL (1.5-8.5); NEUTROPHILS % 75.7 % (36.0-66.0); PLATELET COUNT, AUTOMATED 349 10^3/uL (150-450); RED BLOOD COUNT 4.21 10^6/uL (4.00-5.40)
[2022-07-29 18:51] LABS: THYROID STIMULATING HORMONE 3.497 uIU/ML (0.55-4.78)
[2022-07-29 18:52] LABS: FREE T4 1.24 NG/DL (0.89-1.76)
[2022-07-29 18:53] LABS: ALBUMIN 3.5 G/DL (3.2-5.2); BILIRUBIN,TOTAL 0.6 MG/DL (0.3-1.2); CALCIUM LEVEL 8.8 MG/DL (8.3-10.6); CREATININE FOR GFR 1.01 MG/DL (0.55-1.30); POTASSIUM SERUM 3.8 MMOL/L (3.5-5.1); TOTAL PROTEIN 6.3 G/DL (5.7-8.2)
== END ==
LOC: M SFHCCLAY 09:54
PROVIDERS: ATTEND Family Medicine
DX: I10 Essential (primary) hypertension (principal); M10.471 Other secondary gout, right ankle and foot; K52.831 Collagenous colitis

== ENCOUNTER → 2022-10-29 | Outpatient (REF) | payer MEDICARE | LOC: M SFHCCLAY 16:41 | PROVIDERS: ATTEND Family Medicine | DX: C44.622 Squamous cell carcinoma of skin of right upper limb, including shoulder (principal) ==

== ENCOUNTER → 2023-01-22 | Outpatient (REF) | payer MEDICARE ==
[2023-01-22 12:16] LABS: URIC ACID 7.8 MG/DL (3.1-7.8)
[2023-01-22 12:17] LABS: HEMATOCRIT 38.8 % (36.0-47.0); HEMOGLOBIN 12.3 g/dl (12.0-15.5); MEAN CORPUSCULAR HEMOGLOBIN 28.3 pg (27.0-33.0); MEAN CORPUSCULAR HGB CONC 31.7 g/dl (32.0-36.5); MEAN CORPUSCULAR VOLUME 89.2 fl (80.0-96.0); PLATELET COUNT, AUTOMATED 316 10^3/uL (150-450); RED BLOOD COUNT 4.35 10^6/uL (4.00-5.40); WHITE BLOOD COUNT 7.3 10^3/uL (4.0-10.0)
[2023-01-22 12:20] LABS: ALBUMIN 3.4 G/DL (3.2-5.2); ALKALINE PHOSPHATASE 79 U/L (46-116); ALT/SGPT 15 U/L (7.0-40); AST/SGOT < 8 U/L (<34); BILIRUBIN,TOTAL 0.8 MG/DL (0.3-1.2); BLOOD UREA NITROGEN 23 MG/DL (9-23); CALCIUM LEVEL 9.8 MG/DL (8.3-10.6); CARBON DIOXIDE LEVEL 32 MMOL/L (20-31); CHLORIDE LEVEL 101 MMOL/L (98-107); CHOLESTEROL LEVEL 229 MG/DL (<200); CHOLESTEROL RISK RATIO 4.22 (<5); CREATININE FOR GFR 1.17 MG/DL (0.55-1.30); GLOMERULAR FILTRATION RATE 47.3 (>32); GLUCOSE, FASTING 103 MG/DL (74-106); HDL CHOLESTEROL 54.2 MG/DL (>40); LDL CHOLESTEROL 131.4 MG/DL (<100); NON-HDL-C 174.8 MG/DL; POTASSIUM SERUM 3.9 MMOL/L (3.5-5.1); SODIUM LEVEL 138 MMOL/L (136-145); TOTAL PROTEIN 6.2 G/DL (5.7-8.2); TRIGLYCERIDES LEVEL 217 MG/DL (<150)
[2023-01-22 12:21] LABS: THYROID STIMULATING HORMONE 3.957 uIU/ML (0.55-4.78)
[2023-01-23 17:41] LABS: FOLATE 10.7 NG/ML (>5.4); VITAMIN B12 LEVEL 289 PG/ML (211-911)
== END ==
LOC: M SFHCCLAY 08:11
PROVIDERS: ATTEND Family Medicine
DX: Z00.00 Encounter for general adult medical examination without abnormal findings (principal); I10 Essential (primary) hypertension; M10.471 Other secondary gout, right ankle and foot; M85.9 Disorder of bone density and structure, unspecified; M10.079 Idiopathic gout, unspecified ankle and foot; E78.2 Mixed hyperlipidemia; R29.818 Other symptoms and signs involving the nervous system

== ENCOUNTER → 2023-04-01 | Outpatient (CLI) | payer MEDICARE | LOC: M CLY 12:10 | PROVIDERS: ATTEND Family Medicine | DX: M85.88 Other specified disorders of bone density and structure, other site (principal); M47.816 Spondylosis without myelopathy or radiculopathy, lumbar region; M70.62 Trochanteric bursitis, left hip ==

== ENCOUNTER → 2023-04-01 | Outpatient (CLI) | payer MEDICARE | LOC: M CLY 11:56 | PROVIDERS: ATTEND Family Medicine | DX: M70.62 Trochanteric bursitis, left hip (principal) ==

== ENCOUNTER → 2023-06-09 | Day surgery (SDC) | payer MEDICARE ==
[~2023-06-09] VITALS: Ht 157.5 cm; Wt 83.5 kg
[~2023-06-09] MED LIST changes: +BSS IRR 500ML/OMIDRIA 4ML IRR BAG (OR ONLY) As Ordered ONE; +BUDE3CAP PO; +BUSP10TA PO; +CEFUROXIME 1MG/0.1ML INTRACAMERAL INJ As Ordered ONE; +CYCLOPENTOLATE 1% OPHTH SOLN 2ML BTL OS SCH; +HYDR-3490 PO; +LIDOCAINE 1% SDV 5ML VIAL As Ordered ONE; +MIDAZOLAM INJ 2MG/2ML VIAL As Ordered ONE; +OFLOXACIN 0.3 % (OCUFLOX) OPTH SOL 5ML OS SCH; +PHENYLEPHRINE 2.5% OPHTH SOL 2ML OS SCH; +PRES1CAP PO; +PROPARACAINE 0.5% OPHTH SOL 15ML OS ONE; +TROPICAMIDE 1% OPHTH SOLN 15ML OS SCH; +fentaNYL 100 MCG/2 ML INJECTION As Ordered ONE
[2023-06-09 10:20] VITALS: BP 170/83; TEMP 98.1; O2SAT 95
== END | disposition home or self-care (01) ==
LOC: M SDC 07:48
PROVIDERS: ATTEND Ophthalmology
DX: H25.12 Age-related nuclear cataract, left eye (principal); G47.30 Sleep apnea, unspecified; I10 Essential (primary) hypertension; K21.9 Gastro-esophageal reflux disease without esophagitis; E78.00 Pure hypercholesterolemia, unspecified; F32.A Depression, unspecified; F41.9 Anxiety disorder, unspecified; Z88.8 Allergy status to other drugs, medicaments and biological substances; Z88.0 Allergy status to penicillin; Z79.899 Other long term (current) drug therapy
CPT/HCPCS: 66984; J0697; J1097; J2250; J3010; V2632

== ENCOUNTER 2023-07-14 07:54 | Day surgery (SDC) | payer MEDICARE ==
[~2023-07-14] VITALS: Ht 162.6 cm; Wt 83.5 kg
[~2023-07-14 07:54] MED LIST changes: -BSS IRR 500ML/OMIDRIA 4ML IRR BAG (OR ONLY) As Ordered ONE; -CEFUROXIME 1MG/0.1ML INTRACAMERAL INJ As Ordered ONE; +CYCLOPENTOLATE 1% OPHTH SOLN 2ML BTL OD SCH; -CYCLOPENTOLATE 1% OPHTH SOLN 2ML BTL OS SCH; -LIDOCAINE 1% SDV 5ML VIAL As Ordered ONE; -MIDAZOLAM INJ 2MG/2ML VIAL As Ordered ONE; +MOXIFLOXACIN 0.6MG/0.4ML INTRAOCULAR SYRINGE IO ONE; +OFLOXACIN 0.3 % (OCUFLOX) OPTH SOL 5ML OD SCH; -OFLOXACIN 0.3 % (OCUFLOX) OPTH SOL 5ML OS SCH; +PHENYLEPHRINE 2.5% OPHTH SOL 2ML OD SCH; -PHENYLEPHRINE 2.5% OPHTH SOL 2ML OS SCH; +PROPARACAINE 0.5% OPHTH SOL 15ML OD ONE; -PROPARACAINE 0.5% OPHTH SOL 15ML OS ONE; +TROPICAMIDE 1% OPHTH SOLN 15ML OD SCH; -TROPICAMIDE 1% OPHTH SOLN 15ML OS SCH; -fentaNYL 100 MCG/2 ML INJECTION As Ordered ONE
[2023-07-14] MEDS ORDERED: BSS IRR 500ML/OMIDRIA 4ML IRR BAG (OR ONLY) As Ordered ONE (09:26)
[2023-07-14] MEDS ORDERED: fentaNYL 100 MCG/2 ML INJECTION As Ordered ONE ×2 (09:42→09:49)
[2023-07-14] MEDS ORDERED: MIDAZOLAM INJ 2MG/2ML VIAL As Ordered ONE ×2 (09:42→09:50)
[2023-07-14 10:00] VITALS: BP 160/77; TEMP 98.1; O2SAT 96
== END 2023-07-14 10:20 | disposition home or self-care (01) ==
LOC: M SDC 07:54
PROVIDERS: ATTEND Ophthalmology
DX: H25.11 Age-related nuclear cataract, right eye (principal); I10 Essential (primary) hypertension; E78.00 Pure hypercholesterolemia, unspecified; K21.9 Gastro-esophageal reflux disease without esophagitis; G47.30 Sleep apnea, unspecified; F41.9 Anxiety disorder, unspecified; F32.A Depression, unspecified; Z88.0 Allergy status to penicillin; Z88.8 Allergy status to other drugs, medicaments and biological substances; Z79.899 Other long term (current) drug therapy
CPT/HCPCS: 66984; J1097; J2250; J3010; V2632

== ENCOUNTER → 2024-02-03 | Outpatient (REF) | payer MEDICARE ==
[~2024-02-03] MED LIST changes: -CYCLOPENTOLATE 1% OPHTH SOLN 2ML BTL OD SCH; -MOXIFLOXACIN 0.6MG/0.4ML INTRAOCULAR SYRINGE IO ONE; -OFLOXACIN 0.3 % (OCUFLOX) OPTH SOL 5ML OD SCH; -PHENYLEPHRINE 2.5% OPHTH SOL 2ML OD SCH; -PROPARACAINE 0.5% OPHTH SOL 15ML OD ONE; -TROPICAMIDE 1% OPHTH SOLN 15ML OD SCH
[2024-02-03 12:19] LABS: ALBUMIN 3.6 G/DL (3.2-5.2); BILIRUBIN,TOTAL 0.8 MG/DL (0.3-1.2); CALCIUM LEVEL 8.7 MG/DL (8.3-10.6); CHOLESTEROL RISK RATIO 3.81 (<5); CREATININE FOR GFR 1.3 MG/DL (0.55-1.30); GLOMERULAR FILTRATION RATE 41.7 (>32); HDL CHOLESTEROL 48.7 MG/DL (>40); LDL CHOLESTEROL 93.9 MG/DL (<100); NON-HDL-C 137.3 MG/DL; POTASSIUM SERUM 3.2 MMOL/L (3.5-5.1); TOTAL PROTEIN 6.1 G/DL (5.7-8.2)
[2024-02-03 12:21] LABS: FREE T4 1.21 NG/DL (0.89-1.76); THYROID STIMULATING HORMONE 2.882 uIU/ML (0.55-4.78)
[2024-02-03 12:31] LABS: HEMOGLOBIN A1c 5.9 % (4.0-6.0)
[2024-02-03 12:39] LABS: CREATININE, URINE 82.2 MG/DL
[2024-02-03 12:40] LABS: MAU/CREAT RATIO 9.7 MCG/MG (0.0-30.0)
== END ==
LOC: M SFHCCLAY 08:14
PROVIDERS: ATTEND Family Medicine
DX: I10 Essential (primary) hypertension (principal); M10.471 Other secondary gout, right ankle and foot; K52.831 Collagenous colitis; R73.01 Impaired fasting glucose; N28.9 Disorder of kidney and ureter, unspecified; E78.2 Mixed hyperlipidemia

== ENCOUNTER → 2024-03-29 | Outpatient (CLI) | payer MEDICARE | LOC: M CLY 10:27 | PROVIDERS: ATTEND Family Medicine | DX: R05.3 Chronic cough (principal) ==

== ENCOUNTER → 2024-03-29 | Outpatient (REF) | payer MEDICARE | LOC: M SFHCCLAY 10:06 | PROVIDERS: ATTEND Family Medicine | DX: R19.7 Diarrhea, unspecified (principal) ==

== ENCOUNTER → 2024-04-04 | Outpatient (REF) | payer MEDICARE | LOC: M SFHCCLAY 11:34 | PROVIDERS: ATTEND Family Medicine | DX: R19.7 Diarrhea, unspecified (principal) ==

== ENCOUNTER → 2024-04-05 | Outpatient (CLI) | payer MEDICARE | LOC: M PLAIMG 15:00 | PROVIDERS: ATTEND Family Medicine | DX: R29.898 Other symptoms and signs involving the musculoskeletal system (principal) ==

== ENCOUNTER → 2024-04-11 | Outpatient (REF) | payer MEDICARE | LOC: M SFHCCLAY 16:45 | PROVIDERS: ATTEND Physician Assistant | DX: R19.7 Diarrhea, unspecified (principal) ==

== ENCOUNTER 2024-04-18 15:15 | Emergency (ER) | payer MEDICARE ==
[~2024-04-18] VITALS: Ht 165.1 cm; Wt 79.5 kg
[2024-04-18 15:21] VITALS: BP 148/65; TEMP 97.1; O2SAT 97
== END 2024-04-18 19:08 | disposition left against medical advice (07) ==
LOC: M ED 15:15
DX: Z53.21 Procedure and treatment not carried out due to patient leaving prior to being seen by health care provider (principal)

== ENCOUNTER → 2024-04-26 | Outpatient (REF) | payer MEDICARE ==
[2024-04-26 17:24] LABS: BASO % 0.2 % (0.0-1.0); HEMATOCRIT 35.5 % (36.0-47.0); HEMOGLOBIN 11.9 g/dl (12.0-15.5); LYMPH # 1.7 10^3/uL (1.5-5.0); LYMPH % 8.4 % (24.0-44.0); MEAN CORPUSCULAR HEMOGLOBIN 28.6 pg (27.0-33.0); MEAN CORPUSCULAR HGB CONC 33.5 g/dl (32.0-36.5); MEAN CORPUSCULAR VOLUME 85.3 fl (80.0-96.0); MONO # 1.7 10^3/uL (0.0-0.8); MONO % 8.2 % (2.0-8.0); NEUTROPHILS # 15.9 10^3/uL (1.5-8.5); PLATELET COUNT, AUTOMATED 531 10^3/uL (150-450); RED BLOOD COUNT 4.16 10^6/uL (4.00-5.40); WHITE BLOOD COUNT 20.1 10^3/uL (4.0-10.0)
[2024-04-26 17:46] LABS: CALCIUM LEVEL 8.2 MG/DL (8.3-10.6); CREATININE FOR GFR 1.56 MG/DL (0.55-1.30); GLOMERULAR FILTRATION RATE 33.7 (>32); POTASSIUM SERUM 3.6 MMOL/L (3.5-5.1)
== END ==
LOC: M SFHCCLAY 11:01
PROVIDERS: ATTEND Family Medicine
DX: R06.09 Other forms of dyspnea (principal); K52.9 Noninfective gastroenteritis and colitis, unspecified; I10 Essential (primary) hypertension; A04.72 Enterocolitis due to Clostridium difficile, not specified as recurrent

== ENCOUNTER → 2024-05-03 | Outpatient (REF) | payer MEDICARE ==
[2024-05-03 17:42] LABS: CALCIUM LEVEL 7.7 MG/DL (8.3-10.6); CREATININE FOR GFR 1.13 MG/DL (0.55-1.30); POTASSIUM SERUM 3.3 MMOL/L (3.5-5.1)
== END ==
LOC: M SFHCCLAY 12:20
PROVIDERS: ATTEND Family Medicine
DX: I10 Essential (primary) hypertension (principal)

== ENCOUNTER → 2024-05-04 | Outpatient (REF) | payer MEDICARE ==
[2024-05-04 18:19] LABS: BASO % 0.2 % (0.0-1.0); EOS # 0.1 10^3/uL (0.0-0.5); EOS % 0.3 % (0.0-3.0); HEMATOCRIT 37.4 % (36.0-47.0); HEMOGLOBIN 11.9 g/dl (12.0-15.5); LYMPH # 1.7 10^3/uL (1.5-5.0); LYMPH % 7.3 % (24.0-44.0); MEAN CORPUSCULAR HEMOGLOBIN 28.5 pg (27.0-33.0); MEAN CORPUSCULAR HGB CONC 31.8 g/dl (32.0-36.5); MEAN CORPUSCULAR VOLUME 89.5 fl (80.0-96.0); MONO # 1.4 10^3/uL (0.0-0.8); MONO % 5.8 % (2.0-8.0); NEUTROPHILS # 19.9 10^3/uL (1.5-8.5); PLATELET COUNT, AUTOMATED 363 10^3/uL (150-450); RED BLOOD COUNT 4.18 10^6/uL (4.00-5.40); WHITE BLOOD COUNT 23.6 10^3/uL (4.0-10.0)
== END ==
LOC: M SFHCCLAY 17:26
PROVIDERS: ATTEND Family Medicine
DX: D72.829 Elevated white blood cell count, unspecified (principal)

== ENCOUNTER 2024-05-09 15:32 | Outpatient (CLI) | payer MEDICARE ==
[~2024-05-09] VITALS: Ht 160 cm; Wt 79.5 kg
[2024-05-09] MEDS: BEZLOTOXUMAB IV ONE (16:26)
[2024-05-09] MEDS: NS IV ONE (16:26)
[2024-05-09 17:31] VITALS: BP 161/70; O2SAT 93
== END 2024-05-09 17:50 ==
LOC: M INFU 15:32
PROVIDERS: ATTEND Family Medicine
DX: A04.72 Enterocolitis due to Clostridium difficile, not specified as recurrent (principal); Z88.0 Allergy status to penicillin; Z88.8 Allergy status to other drugs, medicaments and biological substances
CPT/HCPCS: 96365; J0565

== ENCOUNTER → 2024-05-24 | Outpatient (REF) | payer MEDICARE ==
[2024-05-24 17:51] LABS: BASO # 0.1 10^3/uL (0.0-0.2); BASO % 0.9 % (0.0-1.0); EOS # 0.2 10^3/uL (0.0-0.5); EOS % 1.7 % (0.0-3.0); HEMATOCRIT 38.3 % (36.0-47.0); HEMOGLOBIN 12.4 g/dl (12.0-15.5); LYMPH # 0.8 10^3/uL (1.5-5.0); MEAN CORPUSCULAR HEMOGLOBIN 29.2 pg (27.0-33.0); MEAN CORPUSCULAR HGB CONC 32.4 g/dl (32.0-36.5); MEAN CORPUSCULAR VOLUME 90.3 fl (80.0-96.0); MONO # 0.7 10^3/uL (0.0-0.8); MONO % 7.3 % (2.0-8.0); NEUTROPHILS # 7.3 10^3/uL (1.5-8.5); NEUTROPHILS % 78.3 % (36.0-66.0); PLATELET COUNT, AUTOMATED 391 10^3/uL (150-450); RED BLOOD COUNT 4.24 10^6/uL (4.00-5.40); WHITE BLOOD COUNT 9.3 10^3/uL (4.0-10.0)
[2024-05-24 18:19] LABS: ALBUMIN 3.4 G/DL (3.2-5.2); BILIRUBIN,TOTAL 0.6 MG/DL (0.3-1.2); CALCIUM LEVEL 9.6 MG/DL (8.3-10.6); CREATININE FOR GFR 1.21 MG/DL (0.55-1.30); GLOMERULAR FILTRATION RATE 45.2 (>32); POTASSIUM SERUM 4.5 MMOL/L (3.5-5.1); TOTAL PROTEIN 6.9 G/DL (5.7-8.2)
== END ==
LOC: M SFHCCLAY 12:01
PROVIDERS: ATTEND Family Medicine
DX: A04.72 Enterocolitis due to Clostridium difficile, not specified as recurrent (principal); D72.829 Elevated white blood cell count, unspecified

== ENCOUNTER → 2024-07-06 | Outpatient (REF) | payer MEDICARE ==
[2024-07-06 18:48] LABS: CLOSTRIDIUM DIFFICILE PCR POSITIVE (NEGATIVE)
== END ==
LOC: M SFHCCLAY 11:45
PROVIDERS: ATTEND Nurse Practitioner Family
DX: R19.7 Diarrhea, unspecified (principal)

== ENCOUNTER → 2024-07-29 | Outpatient (REF) | payer MEDICARE ==
[2024-07-29 17:12] LABS: ALBUMIN 3.4 G/DL (3.2-5.2); BASO # 0.1 10^3/uL (0.0-0.2); BASO % 0.7 % (0.0-1.0); BILIRUBIN,TOTAL 0.6 MG/DL (0.3-1.2); CALCIUM LEVEL 9.5 MG/DL (8.3-10.6); CREATININE FOR GFR 1.3 MG/DL (0.55-1.30); EOS # 0.1 10^3/uL (0.0-0.5); EOS % 0.9 % (0.0-3.0); GLOMERULAR FILTRATION RATE 41.6 (>32); HEMATOCRIT 39.1 % (36.0-47.0); HEMOGLOBIN 12.5 g/dl (12.0-15.5); LYMPH # 1.1 10^3/uL (1.5-5.0); LYMPH % 12.7 % (24.0-44.0); MEAN CORPUSCULAR HEMOGLOBIN 28.6 pg (27.0-33.0); MEAN CORPUSCULAR VOLUME 89.5 fl (80.0-96.0); MONO # 0.8 10^3/uL (0.0-0.8); NEUTROPHILS # 6.8 10^3/uL (1.5-8.5); NEUTROPHILS % 75.1 % (36.0-66.0); PLATELET COUNT, AUTOMATED 286 10^3/uL (150-450); POTASSIUM SERUM 4.4 MMOL/L (3.5-5.1); RED BLOOD COUNT 4.37 10^6/uL (4.00-5.40); TOTAL PROTEIN 6.5 G/DL (5.7-8.2)
== END ==
LOC: M SFHCCLAY 11:55
PROVIDERS: ATTEND Nurse Practitioner Family
DX: A04.72 Enterocolitis due to Clostridium difficile, not specified as recurrent (principal); Z79.899 Other long term (current) drug therapy

== ENCOUNTER → 2024-08-01 | Outpatient (REF) | payer MEDICARE | LOC: M SFHCCLAY 12:29 | PROVIDERS: ATTEND Nurse Practitioner Family | DX: A04.72 Enterocolitis due to Clostridium difficile, not specified as recurrent (principal); R19.7 Diarrhea, unspecified ==

== ENCOUNTER 2024-09-01 15:32 | Outpatient (CLI) | payer MEDICARE ==
[~2024-09-01] VITALS: Ht 152.4 cm; Wt 82.7 kg
[2024-09-01 15:50] VITALS: BP 166/74; O2SAT 98
[2024-09-01] MEDS: FECAL MICROBIOTA, LIVE-JSLM 150ML BAG (REBYOTA) RC ONE (16:02)
== END 2024-09-01 16:11 | disposition home or self-care (01) ==
LOC: M INFU 15:32
PROVIDERS: ATTEND Physician Assistant Medical
DX: A04.72 Enterocolitis due to Clostridium difficile, not specified as recurrent (principal); Z88.0 Allergy status to penicillin; Z88.8 Allergy status to other drugs, medicaments and biological substances
CPT/HCPCS: G0455; J1440

== ENCOUNTER 2024-09-27 07:24 | Day surgery (SDC) | payer MEDICARE ==
[~2024-09-27] VITALS: Ht 162.6 cm; Wt 84.0 kg
[~2024-09-27 07:24] MED LIST changes: +LIDOCAINE 2% 100MG/5ML SDV (FOR ANES.) As Ordered ONE; +LOSA50TA28 PO; +SPIR1TAB34 PO; +propofoL 200 MG/20 ML VIAL As Ordered ONE
[2024-09-27] MEDS ORDERED: LABETALOL 100MG/20ML VIAL As Ordered ONE (09:10)
[2024-09-27 09:25] VITALS: BP_DIAS 59; TEMP 99.2
[2024-09-27 09:55] VITALS: BP_SYST 116; O2SAT 99
== END 2024-09-27 10:04 | disposition home or self-care (01) ==
LOC: M OPP 07:24
PROVIDERS: ATTEND Internal Medicine Gastroenterology
DX: K38.0 Hyperplasia of appendix (principal); D12.5 Benign neoplasm of sigmoid colon; K52.839 Microscopic colitis, unspecified; K57.30 Diverticulosis of large intestine without perforation or abscess without bleeding; K64.8 Other hemorrhoids; G47.30 Sleep apnea, unspecified; Z88.0 Allergy status to penicillin; Z88.8 Allergy status to other drugs, medicaments and biological substances; Z79.899 Other long term (current) drug therapy
CPT/HCPCS: 45380; 45385; 88305; J1920

== ENCOUNTER → 2024-09-30 | Outpatient (REF) | payer MEDICARE ==
[~2024-09-30] MED LIST changes: -LIDOCAINE 2% 100MG/5ML SDV (FOR ANES.) As Ordered ONE; -propofoL 200 MG/20 ML VIAL As Ordered ONE
[2024-09-30 17:45] LABS: CALCIUM LEVEL 9.1 MG/DL (8.3-10.6); CREATININE FOR GFR 1.41 MG/DL (0.55-1.30); GLOMERULAR FILTRATION RATE 37.9 (>32); POTASSIUM SERUM 4.4 MMOL/L (3.5-5.1)
== END ==
LOC: M SFHCCLAY 10:06
PROVIDERS: ATTEND Nurse Practitioner Family
DX: R13.10 Dysphagia, unspecified (principal)

== ENCOUNTER → 2024-10-04 | Outpatient (CLI) | payer MEDICARE | LOC: M PLAIMG 12:00 | PROVIDERS: ATTEND Internal Medicine Gastroenterology | DX: D37.3 Neoplasm of uncertain behavior of appendix (principal); D37.4 Neoplasm of uncertain behavior of colon ==

== ENCOUNTER → 2024-10-04 | Outpatient (CLI) | payer MEDICARE ==
[~2024-10-04] MED LIST changes: +GASTROGRAFIN SOLUTION 30ML ONE; +ISOVUE-370 76% 100ML VIAL ONE
== END ==
LOC: M PLAIMG 11:59
PROVIDERS: ATTEND Nurse Practitioner Family
DX: R13.10 Dysphagia, unspecified (principal); R05.3 Chronic cough; M46.96 Unspecified inflammatory spondylopathy, lumbar region; I72.8 Aneurysm of other specified arteries; D37.3 Neoplasm of uncertain behavior of appendix; D37.4 Neoplasm of uncertain behavior of colon
CPT/HCPCS: 70491; 74177; Q9963; Q9967

== ENCOUNTER → 2024-11-01 | Outpatient (CLI) | payer MEDICARE ==
[~2024-11-01] MED LIST changes: -GASTROGRAFIN SOLUTION 30ML ONE; -ISOVUE-370 76% 100ML VIAL ONE
== END ==
LOC: M RAD 09:04
PROVIDERS: ATTEND Nurse Practitioner Family
DX: N18.32 Chronic kidney disease, stage 3b (principal)

== ENCOUNTER → 2024-11-03 | Outpatient (CLI) | payer MEDICARE ==
[~2024-11-03] MED LIST changes: +ISOVUE-370 76% 100ML VIAL As Ordered ONE
== END ==
LOC: M RAD 13:41
PROVIDERS: ATTEND Nurse Practitioner Family
DX: I70.1 Atherosclerosis of renal artery (principal); I72.8 Aneurysm of other specified arteries; Q61.02 Congenital multiple renal cysts; K57.30 Diverticulosis of large intestine without perforation or abscess without bleeding
CPT/HCPCS: 74174; Q9967

== ENCOUNTER → 2024-11-03 | Outpatient (REF) | payer MEDICARE ==
[~2024-11-03] MED LIST changes: -ISOVUE-370 76% 100ML VIAL As Ordered ONE
[2024-11-03 12:23] LABS: CALCIUM LEVEL 9.2 MG/DL (8.3-10.6); CREATININE FOR GFR 1.51 MG/DL (0.55-1.30); GLOMERULAR FILTRATION RATE 34.1 (>32); POTASSIUM SERUM 4.4 MMOL/L (3.5-5.1)
== END ==
LOC: M SFHCCLAY 08:29
PROVIDERS: ATTEND Physician Assistant
DX: R30.0 Dysuria (principal)

== ENCOUNTER → 2025-02-09 | Outpatient (REF) | payer MEDICARE ==
[2025-02-09 18:49] LABS: BASO # 0.0 10^3/uL (0.0-0.2); BASO % 0.4 % (0.0-1.0); EOS # 0.1 10^3/uL (0.0-0.5); EOS % 0.7 % (0.0-3.0); LYMPH # 1.1 10^3/uL (1.5-5.0); LYMPH % 11.2 % (24.0-44.0); MONO # 0.9 10^3/uL (0.0-0.8); MONO % 9.3 % (2.0-8.0); NEUTROPHILS # 7.7 10^3/uL (1.5-8.5); NEUTROPHILS % 77.4 % (36.0-66.0); PLATELET COUNT, AUTOMATED 287 10^3/uL (150-450)
[2025-02-09 19:12] LABS: CALCIUM LEVEL 8.9 MG/DL (8.3-10.6); CARBON DIOXIDE LEVEL 29.0 MMOL/L (20-31); CHLORIDE LEVEL 98.0 MMOL/L (98-107); CREATININE FOR GFR 1.27 MG/DL (0.55-1.30); GLOMERULAR FILTRATION RATE 42.0 (>32); POTASSIUM SERUM 4.3 MMOL/L (3.5-5.1); SODIUM LEVEL 138.0 MMOL/L (136-145)
== END ==
LOC: M SFHCCLAY 10:37
PROVIDERS: ATTEND Nurse Practitioner Family
DX: Z01.818 Encounter for other preprocedural examination (principal)

== ENCOUNTER 2025-02-16 06:03 | Inpatient (IN) | payer MEDICARE ==
[~2025-02-16] VITALS: Ht 160 cm; Wt 83.6 kg
[2025-02-16] MEDS ORDERED: ONDANSETRON 4MG 2ML VIAL As Ordered ONE (07:13)
[2025-02-16] MEDS ORDERED: ROCURONIUM BROMIDE 50MG/5ML VIAL As Ordered ONE (07:13)
[2025-02-16] MEDS ORDERED: KETOROLAC 30 MG/ML 1 ML VIAL As Ordered ONE (07:14)
[2025-02-16 07:15] LABS: INR 0.89
[2025-02-16] MEDS: metroNIDAZOLE 500 MG in IV 1 EA IV ONE (07:30)
[2025-02-16] MEDS: ceFAZolin SOD 2 GM IV ONCE IV ONE (07:45)
[2025-02-16] MEDS ORDERED: AZEL137S8 NARES (07:56)
[2025-02-16] MEDS ORDERED: VALA1TAB5 PO (07:56)
[2025-02-16] MEDS ORDERED: ACETAMINOPHEN 1000MG/100ML IV BAG As Ordered ONE (07:56)
[2025-02-16] MEDS ORDERED: PHENYLephrine 500MCG 5ML (100MCG/ML) SYRINGE As Ordered ONE (07:56)
[2025-02-16] MEDS ORDERED: FLUT15.820 NARES (07:56)
[2025-02-16] MEDS ORDERED: SUGAMMADEX SODIUM 200 MG/2 ML VIAL As Ordered ONE (08:15)
[2025-02-16] MEDS ORDERED: ONDANSETRON 4MG 2ML VIAL IV PRN ×2 (08:25→12:00)
[2025-02-16] MEDS ORDERED: LABETALOL 100 MG/20 ML VIAL As Ordered ONE (08:29)
[2025-02-16] MEDS: INSULIN LISPRO (NovoLOG) PER UNIT SC PRN (09:10)
[2025-02-16 09:55] VITALS: BP 127/55; TEMP 97.5; O2SAT 95
[2025-02-16 10:22] VITALS: BP 130/59; TEMP 97.3; O2SAT 95
[2025-02-16] MEDS: LR 1,000 ML IV SCH (10:28)
[2025-02-16 10:55] VITALS: BP 131/61; TEMP 97.3; O2SAT 96
[2025-02-16 12:00] VITALS: BP 134/64; TEMP 97.5; O2SAT 97
[2025-02-16] MEDS ORDERED: ACETAMINOPHEN 325 MG TAB PO PRN (12:00)
[2025-02-16] MEDS ORDERED: [UNRECOGNIZED DRUG - CODE] PO (12:49)
[2025-02-16] MEDS ORDERED: HOME MED LIST COMPLETE! XX SCH (12:50)
[2025-02-16 13:00] VITALS: BP 138/65; TEMP 97.5; O2SAT 95
[2025-02-16 20:18] VITALS: BP 153/85; TEMP 97.9; O2SAT 95
[2025-02-16] MEDS: METOPROLOL TART 25 MG TABLET PO SCH (20:51)
[2025-02-16] MEDS: KETOROLAC 30 MG/ML 1 ML VIAL IV PRN (20:52)
[2025-02-16] MEDS: SENNOSIDES/DOCUSATE SODIUM 8.6 MG/50MG TAB PO SCH (20:53)
[2025-02-17] MEDS: SPIRONOLACTONE 25 MG TAB PO SCH (08:34)
[2025-02-17 08:35] VITALS: BP 153/74
[2025-02-17] MEDS: LOSARTAN 50 MG TABLET PO SCH (08:35)
[2025-02-17] MEDS: busPIRone 5 MG TAB PO SCH (08:35)
[2025-02-17] MEDS: hydroCHLOROthiazide 25 MG TAB PO SCH (08:35)
[2025-02-17] MEDS: OMEPRAZOLE 20MG CAP PO SCH (08:36)
[2025-02-17] MEDS: BUDESONIDE EC 3 MG CAP PO SCH (08:38)
== END 2025-02-17 09:25 | disposition home or self-care (01) | DRG 331 ==
LOC: M OR 06:03 → M MS5PR 09:45
PROVIDERS: ADMIT Surgery; ATTEND Surgery
PROC: 0DTJ4ZZ Resection of Appendix, Percutaneous Endoscopic Approach (ICD-10-PCS; 2025-02-16)
PROC: 8E0W4CZ Robotic Assisted Procedure of Trunk Region, Percutaneous Endoscopic Approach (ICD-10-PCS; 2025-02-16)
PROC: 0DBH4ZZ Excision of Cecum, Percutaneous Endoscopic Approach (ICD-10-PCS; principal; 2025-02-16 07:30)
DX: K38.8 Other specified diseases of appendix (principal); I10 Essential (primary) hypertension; E78.00 Pure hypercholesterolemia, unspecified; K21.9 Gastro-esophageal reflux disease without esophagitis; F32.A Depression, unspecified; Z79.899 Other long term (current) drug therapy; Z88.0 Allergy status to penicillin; Z88.8 Allergy status to other drugs, medicaments and biological substances

== ENCOUNTER 2025-04-28 14:20 | Inpatient (IN) | payer MEDICARE ==
[~2025-04-28] VITALS: Ht 160 cm; Wt 81.4 kg
[~2025-04-28 14:20] MED LIST changes: +AZEL137S8 NARES; +FLUT15.820 NARES; +[UNRECOGNIZED DRUG - CODE] PO
[2025-04-28] MEDS ORDERED: GABA-1171 PO (14:44)
[2025-04-28] MEDS ORDERED: CEPH500C PO (14:44)
[2025-04-28 15:45] LABS: BASO # 0.1 10^3/uL (0.0-0.2); BASO % 0.7 % (0.0-1.0); EOS # 0.1 10^3/uL (0.0-0.5); EOS % 1.0 % (0.0-3.0); LYMPH # 1.4 10^3/uL (1.5-5.0); LYMPH % 10.3 % (24.0-44.0); MONO # 1.4 10^3/uL (0.0-0.8); MONO % 10.5 % (2.0-8.0); NEUTROPHILS # 9.7 10^3/uL (1.5-8.5); NEUTROPHILS % 73.8 % (36.0-66.0); PLATELET COUNT, AUTOMATED 402 10^3/uL (150-450)
[2025-04-28 16:06] LABS: CALCIUM LEVEL 9.8 MG/DL (8.3-10.6); CARBON DIOXIDE LEVEL 26.0 MMOL/L (20-31); CHLORIDE LEVEL 97.0 MMOL/L (98-107); CREATININE FOR GFR 1.46 MG/DL (0.55-1.30); ERYTHROCYTE SEDIMENTATION RATE 96 mm/hr (0-30); GLOMERULAR FILTRATION RATE 35.3 (>32); POTASSIUM SERUM 4.6 MMOL/L (3.5-5.1); SODIUM LEVEL 136.0 MMOL/L (136-145)
[2025-04-28 16:21] LABS: C REACTIVE PROTEIN QUANTITATIV 12.03 MG/DL (<1.0)
[2025-04-28] MEDS: ONDANSETRON 4MG 2ML VIAL IV ONE (17:35)
[2025-04-28] MEDS: MORPHINE 4 MG/ML 1 ML VIAL IV ONE (17:35)
[2025-04-28] MEDS: VANCOMYCIN HCL 1,750 MG, VIAL MATE ADAPTER 1 EACH in NS 500 ML IV ONE (17:53)
[2025-04-28] MEDS ORDERED: ACETAMINOPHEN 325 MG TAB PO PRN (18:55)
[2025-04-28] MEDS ORDERED: KETOROLAC TROMETHAMINE 10 MG TAB PO PRN (18:55)
[2025-04-28] MEDS ORDERED: HOME MED LIST COMPLETE! XX SCH (19:40)
[2025-04-28] MEDS ORDERED: PILL CUTTER 1 EACH XX PRN (19:50)
[2025-04-28 21:10] VITALS: BP 122/58; TEMP 97.7; O2SAT 97
[2025-04-28] MEDS: busPIRone 5 MG TAB PO SCH (21:32)
[2025-04-28] MEDS: METOPROLOL TART 25 MG TABLET PO SCH (21:34)
[2025-04-28] MEDS: ceFAZolin SODIUM 2 GM in DEXTROSE 5% (D5W) ADV/MINI-BAG 50 ML IV SCH (21:34)
[2025-04-28] MEDS: LR 1,000 ML IV SCH (23:50)
[2025-04-29 04:20] VITALS: BP 149/65; TEMP 97.9; O2SAT 97
[2025-04-29 06:25] LABS: PLATELET COUNT, AUTOMATED 341 10^3/uL (150-450)
[2025-04-29 06:46] LABS: CALCIUM LEVEL 8.8 MG/DL (8.3-10.6); CARBON DIOXIDE LEVEL 23.0 MMOL/L (20-31); CHLORIDE LEVEL 101.0 MMOL/L (98-107); CREATININE FOR GFR 1.4 MG/DL (0.55-1.30); GLOMERULAR FILTRATION RATE 37.1 (>32); POTASSIUM SERUM 4.6 MMOL/L (3.5-5.1); SODIUM LEVEL 134.0 MMOL/L (136-145)
[2025-04-29] MEDS: OMEPRAZOLE 20MG CAP PO SCH (08:29)
[2025-04-29] MEDS: LOSARTAN 50 MG TABLET PO SCH (08:29)
[2025-04-29] MEDS: HEPARIN SOD 5000 UNITS/ML 1 ML VIAL/SYRINGE SQ SCH (08:32)
[2025-04-29] MEDS ORDERED: ENOXAPARIN 40 MG/0.4 ML SYRINGE (J1650 PER 10MG) SC SCH (09:00)
[2025-04-29] MEDS: predniSONE 20 MG TAB PO SCH (11:28)
[2025-04-29] MEDS: KETOROLAC 30 MG/ML 1 ML VIAL IV SCH (11:35)
[2025-04-29] MEDS ORDERED: VANCOMYCIN HCL 1,000 MG, VIAL MATE ADAPTER 1 EACH in NS 250 ML IV SCH (12:00)
[2025-04-29 13:00] VITALS: BP 160/70; TEMP 97.9; O2SAT 97
[2025-04-29 20:19] VITALS: BP 168/65; TEMP 97.9; O2SAT 94
[2025-04-29 20:24] VITALS: BP 152/94; TEMP 98.1; O2SAT 95
[2025-04-30 04:11] VITALS: BP 140/86; TEMP 97.3; O2SAT 98
[2025-04-30 09:18] LABS: PLATELET COUNT, AUTOMATED 354 10^3/uL (150-450)
[2025-04-30 09:41] LABS: CALCIUM LEVEL 9.2 MG/DL (8.3-10.6); CARBON DIOXIDE LEVEL 23.0 MMOL/L (20-31); CHLORIDE LEVEL 100.0 MMOL/L (98-107); CREATININE FOR GFR 1.45 MG/DL (0.55-1.30); GLOMERULAR FILTRATION RATE 35.6 (>32); POTASSIUM SERUM 4.6 MMOL/L (3.5-5.1); SODIUM LEVEL 132.0 MMOL/L (136-145)
[2025-04-30 12:00] VITALS: BP 155/79; TEMP 98.1; O2SAT 97
[2025-04-30 21:25] VITALS: BP 165/83; TEMP 97.7; O2SAT 98
[2025-05-01 05:25] VITALS: BP 142/78; TEMP 97.5; O2SAT 99
[2025-05-01 08:55] VITALS: BP 142/78
[2025-05-01] MEDS ORDERED: CEPH500C PO (11:50)
[2025-05-01] MEDS ORDERED: PRED10TA2 PO (11:50)
== END 2025-05-01 12:32 | disposition home or self-care (01) | DRG 603 ==
LOC: M ED 14:20 → M ED INP 18:34 → M MSPAV 21:04
PROVIDERS: ADMIT Student in an Organized Health Care Education/Training Program; ATTEND Student in an Organized Health Care Education/Training Program
DX: L03.116 Cellulitis of left lower limb (principal); F41.9 Anxiety disorder, unspecified; I10 Essential (primary) hypertension; K21.9 Gastro-esophageal reflux disease without esophagitis; M10.072 Idiopathic gout, left ankle and foot; Z66 Do not resuscitate; Z79.899 Other long term (current) drug therapy; Z88.0 Allergy status to penicillin; Z88.8 Allergy status to other drugs, medicaments and biological substances

== ENCOUNTER → 2025-06-16 | Outpatient (REF) | payer MEDICARE ==
[~2025-06-16] MED LIST changes: +CEPH500C PO; +GABA-1171 PO; +PRED10TA2 PO
== END ==
LOC: M SFHCCLAY 17:23
PROVIDERS: ATTEND Nurse Practitioner Family
DX: R19.7 Diarrhea, unspecified (principal)

== ENCOUNTER → 2025-07-07 | Outpatient (REF) | payer MEDICARE | LOC: M SFHCCLAY 12:05 | PROVIDERS: ATTEND Nurse Practitioner Family | DX: R19.7 Diarrhea, unspecified (principal); Z79.899 Other long term (current) drug therapy ==

== ENCOUNTER → 2025-07-12 | Outpatient (REF) | payer MEDICARE ==
[2025-07-12 18:05] LABS: BASO # 0.0 10^3/uL (0.0-0.2); BASO % 0.5 % (0.0-1.0); EOS # 0.3 10^3/uL (0.0-0.5); EOS % 3.6 % (0.0-3.0); LYMPH # 1.2 10^3/uL (1.5-5.0); LYMPH % 15.0 % (24.0-44.0); MONO # 0.8 10^3/uL (0.0-0.8); MONO % 9.8 % (2.0-8.0); NEUTROPHILS # 5.4 10^3/uL (1.5-8.5); NEUTROPHILS % 70.3 % (36.0-66.0); PLATELET COUNT, AUTOMATED 351 10^3/uL (150-450)
[2025-07-12 18:11] LABS: ALT/SGPT 18.0 U/L (7.0-40); AST/SGOT 21.0 U/L (<34); CALCIUM LEVEL 9.4 MG/DL (8.3-10.6); CARBON DIOXIDE LEVEL 21.0 MMOL/L (20-31); CHLORIDE LEVEL 101.0 MMOL/L (98-107); CREATININE FOR GFR 2.45 MG/DL (0.55-1.30); GLOMERULAR FILTRATION RATE 19.0 (>32); IRON (FE) 63.0 UG/DL (50-170); MAGNESIUM LEVEL 1.5 MG/DL (1.8-2.4); PERCENT SATURATION 20.3 % (13.2-45.0); POTASSIUM SERUM 5.3 MMOL/L (3.5-5.1); SODIUM LEVEL 134.0 MMOL/L (136-145)
== END ==
LOC: M SFHCCLAY 12:50
PROVIDERS: ATTEND Nurse Practitioner Family
DX: R06.09 Other forms of dyspnea (principal); R19.7 Diarrhea, unspecified

== ENCOUNTER → 2025-07-12 | Outpatient (CLI) | payer MEDICARE ==
[~2025-07-12] MED LIST changes: +ALLO100T PO; +LOPE2CAP PO; +QUES4POW PO; +RISATAB3 PO
== END ==
LOC: M CLY 12:55
PROVIDERS: ATTEND Nurse Practitioner Family
DX: R06.09 Other forms of dyspnea (principal); R19.7 Diarrhea, unspecified; D50.9 Iron deficiency anemia, unspecified

== ENCOUNTER → 2025-07-14 | Outpatient (REF) | payer MEDICARE ==
[~2025-07-14] MED LIST changes: -LOPE2CAP PO; -QUES4POW PO; -RISATAB3 PO
== END ==
LOC: M SFHCCLAY 17:20
PROVIDERS: ATTEND Nurse Practitioner Family
DX: N17.9 Acute kidney failure, unspecified (principal)

== ENCOUNTER → 2025-07-17 | Outpatient (REF) | payer MEDICARE ==
[~2025-07-17] MED LIST changes: +LOPE2CAP PO; +QUES4POW PO; +RISATAB3 PO
[2025-07-17 12:55] LABS: BASO # 0.1 10^3/uL (0.0-0.2); BASO % 0.8 % (0.0-1.0); EOS # 0.2 10^3/uL (0.0-0.5); EOS % 3.0 % (0.0-3.0); LYMPH # 1.2 10^3/uL (1.5-5.0); LYMPH % 18.1 % (24.0-44.0); MONO # 1.0 10^3/uL (0.0-0.8); MONO % 14.5 % (2.0-8.0); NEUTROPHILS # 4.2 10^3/uL (1.5-8.5); NEUTROPHILS % 63.0 % (36.0-66.0); PLATELET COUNT, AUTOMATED 373 10^3/uL (150-450)
[2025-07-17 12:57] LABS: CALCIUM LEVEL 9.8 MG/DL (8.3-10.6); CARBON DIOXIDE LEVEL 18.0 MMOL/L (20-31); CHLORIDE LEVEL 105.0 MMOL/L (98-107); CREATININE FOR GFR 2.48 MG/DL (0.55-1.30); GLOMERULAR FILTRATION RATE 18.7 (>32); MAGNESIUM LEVEL 1.4 MG/DL (1.8-2.4); POTASSIUM SERUM 4.7 MMOL/L (3.5-5.1); SODIUM LEVEL 136.0 MMOL/L (136-145)
[2025-07-17 13:02] LABS: FREE T4 1.29 NG/DL (0.89-1.76)
== END ==
LOC: M SFHCCLAY 07:53
PROVIDERS: ATTEND Nurse Practitioner Family
DX: N17.9 Acute kidney failure, unspecified (principal); R00.0 Tachycardia, unspecified

== ENCOUNTER 2025-07-18 11:01 | Inpatient (IN) | payer MEDICARE ==
[~2025-07-18] VITALS: Ht 160 cm; Wt 82.2 kg
[~2025-07-18 11:01] MED LIST changes: -ALLO100T PO; -LOPE2CAP PO; -QUES4POW PO; -RISATAB3 PO
[2025-07-18 12:54] LABS: BASO # 0.1 10^3/uL (0.0-0.2); BASO % 0.5 % (0.0-1.0); EOS # 0.1 10^3/uL (0.0-0.5); EOS % 1.4 % (0.0-3.0); LYMPH # 1.0 10^3/uL (1.5-5.0); LYMPH % 10.3 % (24.0-44.0); MONO # 1.0 10^3/uL (0.0-0.8); MONO % 10.1 % (2.0-8.0); NEUTROPHILS # 7.6 10^3/uL (1.5-8.5); NEUTROPHILS % 76.9 % (36.0-66.0); PLATELET COUNT, AUTOMATED 345 10^3/uL (150-450)
[2025-07-18 13:22] LABS: CALCIUM LEVEL 9.2 MG/DL (8.3-10.6); CARBON DIOXIDE LEVEL 17.0 MMOL/L (20-31); CHLORIDE LEVEL 102.0 MMOL/L (98-107); CREATININE FOR GFR 2.37 MG/DL (0.55-1.30); GLOMERULAR FILTRATION RATE 19.7 (>32); MAGNESIUM LEVEL 1.4 MG/DL (1.8-2.4); POTASSIUM SERUM 4.6 MMOL/L (3.5-5.1); SODIUM LEVEL 132.0 MMOL/L (136-145)
[2025-07-18 13:28] LABS: FREE T4 1.19 NG/DL (0.89-1.76)
[2025-07-18] MEDS: MAG SULF 1GM/100ML (MAG RUN) 1 GM in IV 1 EA IV ONE ×2 (14:15→15:40)
[2025-07-18] MEDS: NS (Normal Saline) 0.9% 1,000 ML IV ONE (14:45)
[2025-07-18] MEDS ORDERED: ALLO100T PO (15:35)
[2025-07-18] MEDS ORDERED: HOME MED LIST COMPLETE! XX SCH (15:40)
[2025-07-18] MEDS ORDERED: ACETAMINOPHEN 325 MG TAB PO PRN (16:30)
[2025-07-18] MEDS ORDERED: PILL CUTTER 1 EACH XX PRN (17:10)
[2025-07-18] MEDS: MAG SULF 1GM/100ML (MAG RUN) 1 GM in IV 1 EA IV SCH (17:41)
[2025-07-18] MEDS: SODIUM BICARBONATE 75 MEQ in NS 0.45% 1,000 ML IV SCH (18:00)
[2025-07-18 18:50] LABS: KETONE, URINE AUTO RFX NEGATIVE (NEGATIVE); NITRITE, URINE AUTO RFX NEGATIVE (NEGATIVE); RBC, URINE AUTO RFX 1 /HPF (0-3); SQUAM EPITHELIAL CELL UR AURFX 0 /HPF (0-6); WBC, URINE AUTO RFX 1 /HPF (0-3)
[2025-07-18 18:51] LABS: LEUKOCYTE ESTERASE UR AUTO RFX TRACE (NEGATIVE)
[2025-07-18 19:21] LABS: CHLORIDE,RANDOM URINE 28.0 MMOL/L; POTASSIUM RANDOM URINE 15.0 MMOL/L; SODIUM,RANDOM URINE 28.0 MMOL/L
[2025-07-18 19:29] LABS: UREA NITROGEN RANDOM URINE 288.0 MG/DL
[2025-07-18] MEDS: METOPROLOL TART 25 MG TABLET PO SCH (21:03)
[2025-07-18] MEDS: busPIRone 5 MG TAB PO SCH (21:03)
[2025-07-18] MEDS: HEPARIN SOD 5000 UNITS/ML 1 ML VIAL/SYRINGE SQ SCH (21:04)
[2025-07-18 22:15] VITALS: BP 141/68; TEMP 97.8; O2SAT 93
[2025-07-18 23:43] VITALS: BP 113/57; TEMP 97.6; O2SAT 98
[2025-07-19 03:17] VITALS: BP 129/63; TEMP 97.5; O2SAT 97
[2025-07-19 05:04] LABS: BASO # 0.0 10^3/uL (0.0-0.2); BASO % 0.3 % (0.0-1.0); EOS # 0.2 10^3/uL (0.0-0.5); EOS % 3.3 % (0.0-3.0); LYMPH # 0.9 10^3/uL (1.5-5.0); LYMPH % 15.1 % (24.0-44.0); MONO # 0.9 10^3/uL (0.0-0.8); MONO % 14.6 % (2.0-8.0); NEUTROPHILS # 4.1 10^3/uL (1.5-8.5); NEUTROPHILS % 66.2 % (36.0-66.0); PLATELET COUNT, AUTOMATED 319 10^3/uL (150-450)
[2025-07-19 05:27] LABS: ALT/SGPT 18.0 U/L (7.0-40); AST/SGOT 22.0 U/L (<34); CALCIUM LEVEL 8.9 MG/DL (8.3-10.6); CARBON DIOXIDE LEVEL 20.0 MMOL/L (20-31); CHLORIDE LEVEL 101.0 MMOL/L (98-107); CREATININE FOR GFR 1.97 MG/DL (0.55-1.30); GLOMERULAR FILTRATION RATE 24.6 (>32); MAGNESIUM LEVEL 2.8 MG/DL (1.8-2.4); POTASSIUM SERUM 4.4 MMOL/L (3.5-5.1); SODIUM LEVEL 131.0 MMOL/L (136-145)
[2025-07-19 08:15] VITALS: BP 132/67; TEMP 97.8; O2SAT 96
[2025-07-19] MEDS: OMEPRAZOLE 20MG CAP PO SCH (09:40)
[2025-07-19 12:00] VITALS: BP 153/72; TEMP 98.6; O2SAT 99
[2025-07-19] MEDS: LOPERAMIDE 2 MG CAPLET PO PRN (12:21)
[2025-07-19 17:52] LABS: CALCIUM LEVEL 9.2 MG/DL (8.3-10.6); CARBON DIOXIDE LEVEL 23.0 MMOL/L (20-31); CHLORIDE LEVEL 98.0 MMOL/L (98-107); CREATININE FOR GFR 1.67 MG/DL (0.55-1.30); GLOMERULAR FILTRATION RATE 30.0 (>32); POTASSIUM SERUM 4.3 MMOL/L (3.5-5.1); SODIUM LEVEL 131.0 MMOL/L (136-145)
[2025-07-19 20:44] VITALS: BP 149/68; TEMP 99.1; O2SAT 97
[2025-07-19 21:13] VITALS: BP 149/68
[2025-07-20 05:19] VITALS: BP 153/71; TEMP 98.8; O2SAT 94
[2025-07-20 07:14] LABS: BASO # 0.0 10^3/uL (0.0-0.2); BASO % 0.5 % (0.0-1.0); EOS # 0.2 10^3/uL (0.0-0.5); EOS % 3.5 % (0.0-3.0); LYMPH # 0.9 10^3/uL (1.5-5.0); LYMPH % 16.1 % (24.0-44.0); MONO # 0.9 10^3/uL (0.0-0.8); MONO % 16.3 % (2.0-8.0); NEUTROPHILS # 3.6 10^3/uL (1.5-8.5); NEUTROPHILS % 62.9 % (36.0-66.0); PLATELET COUNT, AUTOMATED 305 10^3/uL (150-450)
[2025-07-20 07:33] LABS: ALT/SGPT 19.0 U/L (7.0-40); AST/SGOT 21.0 U/L (<34); CALCIUM LEVEL 8.9 MG/DL (8.3-10.6); CARBON DIOXIDE LEVEL 25.0 MMOL/L (20-31); CHLORIDE LEVEL 101.0 MMOL/L (98-107); CREATININE FOR GFR 1.52 MG/DL (0.55-1.30); GLOMERULAR FILTRATION RATE 33.6 (>32); MAGNESIUM LEVEL 1.8 MG/DL (1.8-2.4); POTASSIUM SERUM 4.2 MMOL/L (3.5-5.1); SODIUM LEVEL 136.0 MMOL/L (136-145)
[2025-07-20 08:25] VITALS: BP 118/64
[2025-07-20] MEDS ORDERED: LOPE2CAP PO (10:00)
[2025-07-20] MEDS ORDERED: LOSA50TA28 PO (10:00)
[2025-07-20] MEDS ORDERED: RISATAB3 PO (10:00)
[2025-07-20 12:00] VITALS: BP 128/88; TEMP 98.4; O2SAT 95
== END 2025-07-20 13:42 | disposition home or self-care (01) | DRG 683 ==
LOC: M ED 11:01 → M ED INP 16:51 → M PCU 22:23 → M MSPAV 07-19 11:54
PROVIDERS: ADMIT Internal Medicine; ATTEND Internal Medicine
DX: N17.9 Acute kidney failure, unspecified (principal); E87.20 Acidosis, unspecified; E87.1 Hypo-osmolality and hyponatremia; E78.5 Hyperlipidemia, unspecified; F10.21 Alcohol dependence, in remission; F41.9 Anxiety disorder, unspecified; F32.A Depression, unspecified; M19.90 Unspecified osteoarthritis, unspecified site; M10.9 Gout, unspecified; I72.8 Aneurysm of other specified arteries; M85.80 Other specified disorders of bone density and structure, unspecified site; R93.421 Abnormal radiologic findings on diagnostic imaging of right kidney; H35.30 Unspecified macular degeneration; N18.2 Chronic kidney disease, stage 2 (mild); K21.9 Gastro-esophageal reflux disease without esophagitis; K52.9 Noninfective gastroenteritis and colitis, unspecified; E83.42 Hypomagnesemia; R63.0 Anorexia; R63.4 Abnormal weight loss; Z90.49 Acquired absence of other specified parts of digestive tract; Z79.899 Other long term (current) drug therapy; Z88.0 Allergy status to penicillin; Z88.8 Allergy status to other drugs, medicaments and biological substances